=== PATIENT | male | born 1960 | race Caucasian/White ===

== ENCOUNTER 2020-12-11 10:36 | Emergency (ER) | payer OTHER, SELFPAY ==
--- NOTE | ~2020-12-11 | CT_ITS ---
EXAMINATION: CT abdomen pelvis wo con DATE: 12/11/2020 12:55 INDICATION: Left lower abdominal pain and left flank pain. TECHNIQUE: Computed tomography (CT) of the abdomen and pelvis was performed without intravenous contr ast. Automated exposure control and iterative reconstruction technique were employed. The dose-length product was 483.24 mGy-cm. COMPARISON: 08/20/2015 FINDINGS: Lung bases are clear. Heart size is normal. Atherosclerotic calcific changes along the right coronary artery. No pericardial or pleural effusion. Cholecystectomy clips at the gallbladder fossa. Liver, s pleen, pancreas, bilateral adrenal glands and kidneys are normal. No urolithiasis or hydronephrosis. Bowels including the appendix are normal. Bladder is normal. Prostatomegaly. Postoperative change of prior umbilical hernia mesh repair. No free intraperitoneal gas or fluid. No pathologically enlarged abdominal or pelvic lymphadenopathy. L4-S1 anterior spinal fusion with anterior plate and screw fixat ion. Chronic T12 and L1 compression fractures with 20% anterior vertebral body height loss. There are Schmorl's nodes at multiple additional levels in the upper lumbar and lower thoracic spine. Moderate left-sided and mild to moderate right-sided hip osteoarthritis. IMPRESSION: 1. No urolithiasis or acute intra-abdominal/pelvic process. Reviewed, dictated and finalized at location B. [employer]IST
--- NOTE | ~2020-12-11 | US_ITS ---
EXAMINATION: US scrotum doppler EXAM DATE: 12/11/2020 12:15 INDICATION: Left testicular pain. TECHNIQUE: Multiple grayscale and Doppler images of the testicles and scrotum were obtained bilateral ly. There is no prior study for comparison. FINDINGS: Right testicle measures 3.9 x 1.9 x 2.8 cm and is morphologically normal. Low resistance Doppler maria dolores w confirmed. The epididymis is unremarkable. There is no hydrocele or varicocele. Left testicle measures 3.6 x 1.7 x 2.5 cm and is morphologically normal. Low resistance Doppler flow confirmed. The epididymis is unremarkable. There is a moderate-sized varicocele and small hydrocele. IMPRESSION: Moderate-sized left varicocele, small left hydrocele. Reviewed, dictated and finalized at location A. X TRADER
--- NOTE | ~2020-12-11 | XR_ITS ---
EXAMINATION: XR abdomen/kub 1V EXAM DATE: 12/11/2020 12:52 INDICATION: Left flank pain. Rule out kidney stone. TECHNIQUE: Frontal projection(s) of the abdomen for interpretation. Correlation is made to CT scan sa me date. FINDINGS: There is expected amount of colonic stool and gas. No small bowel dilation, nonobstructiv e bowel gas pattern. There are no suspicious calcifications identified. There is no organomegaly suspected. Anterior fusion L4-5 and L5-S1. There are cholecystectomy clips. Calcifications in the pe lvis are believed to be phleboliths. There is moderate bilateral hip primary osteoarthritis. IMPRESSION: No suspicious calcifications. Reviewed, dictated and finalized at location A. [employer]
[2020-12-11 11:21] VITALS: BP 128/90; PULSE 74; RESP 16; TEMP 36.9; O2SAT 98
[2020-12-11] MEDS: ONDANSETRON INJ 4 MG/2 ML VIAL IV PUSH (11:53)
[2020-12-11] MEDS: HYDROmorphone HCL INJ (*CRX) 1 MG/ML SYR 0.5 MG IV PUSH (11:53)
[2020-12-11 11:54] LABS: Basophils Percent Auto 0.2 % (0.2-1.2); Eosinophils Absolute Auto 0.1 K/mm3 (0-0.3); Eosinophils Percent Auto 1.1 % (0-4.4); Hematocrit 47.2 % (42.0-52.0); Hemoglobin 16.1 g/dL (14.0-18.0); Immature Granulocyte Absolute 0.02 K/mm3 (0.00-0.031); Immature Granulocyte Percent A 0.2 % (0-0.5); Lymphocytes Absolute Auto 1.91 K/mm3 (0.9-3.2); Lymphocytes Percent Auto 21.5 % (18.3-44.2); Mean Corpuscular HGB Conc 34.1 g/dl (32-36); Mean Corpuscular Volume 93.8 fl (80-100); Mean Platelet Volume 8.6 fl (7.4-10.4); Monocytes Absolute Auto 0.8 K/mm3 (0.1-0.6); Monocytes Percent Auto 9.3 % (2.6-8.5); Neutrophils Percent Auto 67.7 % (45.5-73.1); Platelet Count Result 256 k/mm3 (150-375); Red Blood Count 5.03 M/mm3 (4.6-6.20); Red Cell Distribution Width 12.6 % (11.5-14.5); White Blood Count 8.9 K/mm3 (4.5-10.0)
[2020-12-11 11:56] LABS: Add Urine Microscopic? NO; Appearance Urine Clear (Clear); Bilirubin Urine Negative (Negative); Blood Urine Negative (Negative); Color Urine Colorless (Yellow); Glucose Urine UA Negative (Negative); Ketones Urine Negative (Negative); Leukocyte Esterase Ur Negative LEU/UL (Negative); Nitrate Urine Negative (Negative); Protein Urine Negative (Negative); Urobilinogen Urine Negative mg/dL (<2.0)
[2020-12-11 11:58] LABS: Specific Grav Ur 1.003 (1.001-1.035)
--- NOTE | 2020-12-11 12:02 | ED.ABDPAIN ---
HPI - Abdominal Pain General Chief Complaint: Urogenital-Male Stated Complaint: left flank/testicle/leg pain Time Seen by Provider: 12/11/20 11:21 Source: patient Mode of arrival: ambulatory Limitations: no limitations History of Present Illness HPI narrative: This is a 60 year old male who presents for evaluation of left groin pain x 4 days. He reports this pain has been constant. He reports pain is located in his left groin, left testicle, left lower abdomen. His pain has worsened and he reports he now has pain in his left lower back. He is concerned he may have a kidney infection. He denies dysuria, hematuria, fever or chills. He reports his pain is causing left leg discomfort. He denies left lower extremity numbness or tingling. He denies urinary incontinence. Related Data Allergies Allergy/AdvReac Type Severity Reaction Status Date / Time codeine Allergy Unknown Itching Verified 12/11/20 12:55 Review of Systems Review of Systems: All systems reviewed & are unremarkable except as noted in HPI and below Constitutional: Constitutional: Denies chills and Denies fever(s) Respiratory: Respiratory: Denies dyspnea Gastrointestinal: Gastrointestinal: Reports abdominal pain, Denies diarrhea and Reports nausea Genitourinary: Genitourinary: Denies hematuria, Denies oliguria, Denies penile discharge and Reports testicular pain Musculoskeletal: Musculoskeletal: Reports back pain Neurologic: Denies weakness PMFSH Past Medical History Medical History (Updated 12/11/20 @ 15:00 by Kacey Capone MD) Patient denies medical problems Surgical History Surgical History (Updated 12/11/20 @ 14:58 by Kacey Capone MD) Previous back surgery Social History Social History Smoking status: Never smoker Alcohol intake: current Exam Const: General: no acute distress and alert Orientation/consciousness: patient oriented x3 Eyes: EOM: EOMs intact bilaterally Chest: Chest palpation & inspection: normal inspection of the chest Resp: Effort & Inspection: normal respiratory effort and no retractions Auscultation: clear to auscultation bilaterally Cardio: Rate: regular rate Rhythm: regular rhythm Heart sounds: no murmurs GI: GI Palp: Yes Soft to palpation, Yes Tenderness to palpation present (GI) (LLQ), No Guarding due to palpation present (GI) and No Rigid due to palpation Auscultation: normal bowel sounds : General: Yes no CVA tenderness Penis: Yes circumcised Testes: Testes normal Back/Spine/Pelvis: Back: no CVA tenderness Skin: General skin exam: normal color Rashes: no rashes Neuro: General: patient oriented x3, moves all extremities and CN's II-XI intact bilaterally Gait exam (Neuro): Normal gait present Extrem: General: no pedal edema Psych: Mental Status: mental status grossly normal Affect: normal affect Course Reevaluation(s) Reevaluation #1: Nursing staff reports pain is much better after taking Toradol. I have discussed with patient that labs are unremarkable. HE does not have an infection or kidney stone. I Discussed he has a varicocele he can follow up with URologist. Date: 12/11/20 Time: 14:54 Vital Signs Vital signs: Vital Signs Temperature 98.4 F 12/11/20 11:21 Pulse Rate 74 12/11/20 11:21 Respiratory Rate 16 12/11/20 11:21 Blood Pressure 128/90 12/11/20 11:21 Pulse Oximetry 98 12/11/20 11:21 Temperature 98.4 F 12/11/20 11:21 Pulse Rate 74 12/11/20 11:21 Respiratory Rate 16 12/11/20 15:30 Blood Pressure 121/78 12/11/20 15:30 Pulse Oximetry 98 12/11/20 11:21 MDM - Abdominal Pain Lab Data Attestation: I reviewed the patient's lab results. Result diagrams: 12/11/20 11:47 12/11/20 11:47 Labs: Lab Results 12/11/20 12/11/20 12/11/20 Range/Units 11:47 11:47 11:47 WBC 8.9 (4.5-10.0) K/mm3 RBC 5.03 (4.6-6.20) M/mm3 Hgb 16.1 (14.0-18.0) g/dL Hct 47.2 (42.0-52.0)
[2020-12-11 12:09] LABS: Alanine Aminotransferase 29 U/L (4-50); Albumin Level 4.1 g/dL (3.5-5.1); Alkaline Phosphatase 46 U/L (38-126); Anion Gap 7 mmol/L (8-16); Aspartate Amino Transferase 32 U/L (17-59); Bilirubin,Total 0.7 mg/dL (0.2-1.3); Blood Urea Nitrogen 17 mg/dL (9-20); Calcium 8.8 mg/dL (8.4-10.2); Carbon Dioxide 29 mmol/L (22-30); Chloride 104 mmol/L (98-107); Estimated CRCL calculation 67 ml/min; Estimated Glomerular Filt Rate > 60; Glucose 91 mg/dL (75-110); Potassium 4.2 mmol/L (3.4-5.0); Sodium 140 mmol/L (137-145)
[2020-12-11] MEDS: KETOROLAC 30 MG/ML VIAL (*BKC) IV PUSH (14:24)
[2020-12-11] MEDS: oxyCODONE/ACETAMINOPHEN (*CRX) 5-325 MG TABLET 1 TABLET PO (14:24)
[2020-12-11 15:30] VITALS: BP 121/78; RESP 16
== END 2020-12-11 15:30 | disposition home or self-care (01) ==
PROVIDERS: Emergency Provider General Practice; PCP Internal Medicine Gastroenterology
DX: R10.32 Left lower quadrant pain (principal); I86.1 Scrotal varices
CPT/HCPCS: 36415; 74018; 74176; 76870; 80053; 81003; 85025; 93976; 96374; 96375; 99284; A9270; J1170; J1885; J2405

== ENCOUNTER 2021-02-05 06:50 | Emergency (ER) | payer OTHER, SELFPAY ==
--- NOTE | ~2021-02-05 | CT_ITS ---
EXAMINATION: CT soft tissue neck w con EXAM DATE: 02/05/2021 08:34 INDICATION: Neck pain, sore throat. Cough. TECHNIQUE: Spiral CT of the neck was performed following intravenous injection of 75 mL Omnipaque 350 . Axial, coronal and sagittal images were reviewed. The dose-length product (DLP) for this examinat ion was 589.24 mGy-cm. The exposure was tailored according to patient size (auto mA exposure control ), and iterative reconstruction (ASIR) was used as additional dose reduction technique. There is no prior study for comparison. FINDINGS: Small thyroid nodules. The submandibular and parotid glands are symmetric. There is no c ervical lymphadenopathy. There are no masses identified. The superior mediastinum is unremarkable . The airway is unremarkable. Epiglottis is normal in thickness. Parapharyngeal and pre-glottic fat planes are preserved. Mild carotid bulb arterial sclerosis bilaterally without stenosis. Patient has had bilateral ocular lens surgery. Mild ethmoid mucoperiosteal thickening mostly on the right. No sinus air-fluid levels. Mastoid air cells are well aerated. Lung apices are clear. Mild to modera te cervical spondylosis. There is cervical spondylosis. IMPRESSION: 1. Mild ethmoid mucoperiosteal thickening. 2. Mild carotid bulb arterial sclerosis without stenosis. Reviewed, dictated and finalized at location A.
[2021-02-05 06:55] VITALS: BP 142/89; PULSE 68; RESP 20; TEMP 36.2; O2SAT 99
--- NOTE | 2021-02-05 07:10 | PC.NURSE ---
Strep results negative.
--- NOTE | 2021-02-05 07:13 | PC.NURSE ---
Throat culture sent to lab.
[2021-02-05 07:19] VITALS: BP 142/89; PULSE 68; RESP 20; TEMP 36.2; O2SAT 99
--- NOTE | 2021-02-05 07:23 | PC.NURSE ---
Pt presents to ED with complaints of sore throat for the past 2-3 days. Pt states he has been treating pain with 243mg aspirin approx 3x daily. Pt states he has also been gargling with peroxide and tea tree oil with no relief. Pain rated 10/10 at this time. Throat noted with mild irritation and redness. No white patches or pockets noted. Pt alert and oriented x4 and in no obvious distress. Pt updated on poc. All questions and concerns addressed. Pt resting on cart in its lowest position with call button and personal items within reach. Pt advised to press call button for assistance.
[2021-02-05] MEDS: SODIUM CHLORIDE 0.9% IV 1,000 ML 999 ML IV CONT (07:42)
[2021-02-05] MEDS: ONDANSETRON INJ 4 MG/2 ML VIAL IV PUSH (07:42)
[2021-02-05 08:01] LABS: Basophils Percent Auto 0.6 % (0.2-1.2); Eosinophils Absolute Auto 0.2 K/mm3 (0-0.3); Hematocrit 48.9 % (42.0-52.0); Hemoglobin 16.6 g/dL (14.0-18.0); Immature Granulocyte Absolute 0.03 K/mm3 (0.00-0.031); Immature Granulocyte Percent A 0.4 % (0-0.5); Lymphocytes Percent Auto 26.1 % (18.3-44.2); Mean Corpuscular HGB Conc 33.9 g/dl (32-36); Mean Corpuscular Hemoglobin 31.4 pg (26-34); Mean Corpuscular Volume 92.4 fl (80-100); Monocytes Absolute Auto 0.9 K/mm3 (0.1-0.6); Monocytes Percent Auto 13.6 % (2.6-8.5); Neutrophils Absolute Auto 3.9 K/mm3 (1.3-6.7); Neutrophils Percent Auto 56.3 % (45.5-73.1); Platelet Count Result 223 k/mm3 (150-375); Red Blood Count 5.29 M/mm3 (4.6-6.20); White Blood Count 6.9 K/mm3 (4.5-10.0)
[2021-02-05 08:13] LABS: Anion Gap 5 mmol/L (8-16); Blood Urea Nitrogen 16 mg/dL (9-20); Calcium 8.5 mg/dL (8.4-10.2); Carbon Dioxide 28 mmol/L (22-30); Chloride 107 mmol/L (98-107); Estimated CRCL calculation 76 ml/min; Estimated Glomerular Filt Rate > 60; Glucose 102 mg/dL (75-110); Potassium 3.9 mmol/L (3.4-5.0); Sodium 140 mmol/L (137-145)
[2021-02-05 08:18] VITALS: BP 139/89; PULSE 75; RESP 18; O2SAT 97
[2021-02-05 10:25] VITALS: BP 144/91; PULSE 73; RESP 18; O2SAT 97
--- NOTE | 2021-02-05 11:31 | ED.URI ---
HPI - URI/Sore Throat General Chief Complaint: Upper Respiratory Infection Stated Complaint: SORE THROAT X2D Time Seen by Provider: 02/05/21 07:07 Source: patient Mode of arrival: ambulatory Limitations: no limitations History of Present Illness HPI Narrative: 60-year-old with no major medical problems here with complaints of sore throat for past 3 days. He states that he feels there is something in the back of his throat which is very painful and is unable to drink water or eat food. He denies any fever or chills. No possible Covid exposure. Related Data Allergies Allergy/AdvReac Type Severity Reaction Status Date / Time codeine Allergy Unknown Itching Verified 12/11/20 12:55 Review of Systems Review of Systems: All systems reviewed & are unremarkable except as noted in HPI and below Constitutional: Constitutional: Reports no additional constitutional complaints Eyes: Eyes: Reports no additional eye complaints ENT: Reports as per HPI Cardiovascular: Cardiovascular: Reports no additional cardiovascular complaints Respiratory: Respiratory: Reports no additional respiratory complaints Gastrointestinal: Gastrointestinal: Reports no additional gastrointestinal complaints Musculoskeletal: Musculoskeletal: Reports no additional musculoskeletal complaints Integumentary/Breasts: Skin/Breast: Reports system reviewed and no additional complaints, except as docu Psychiatric: Psychiatric: Reports no additional psychiatric complaints PMFSH Past Medical History Medical History Patient denies medical problems Surgical History Surgical History Previous back surgery Social History Social History Smoking status: Never smoker Alcohol intake: current Exam Narrative: Exam Narrative: GENERAL: Well-appearing, well-nourished, and in no acute distress. HEAD: Normocephalic, atraumatic. EYES: PERRLA and EOMI. ENT: Nares clear, no rhinorrhea or epistaxis. Mucous membranes moist. NECK: Supple. CHEST: Clear to auscultation. No respiratory distress. HEART: Regular rate and rhythm. No murmur heard. Normal peripheral pulses. ABDOMEN: Soft, nontender, nondistended, normal active bowel sounds. EXTREMITIES: Normal range of motion. No edema. SKIN: Warm, dry, no rash. NEURO: No focal deficits. Alert and oriented x3. PSYCH: Normal mood and affect. Course Course Emergency Course: Patient states that he is feeling much better after IV Decadron. I did discuss his lab, CT findings . Advised him to drink plenty of fluids take Tylenol ibuprofen for pain and also take prednisone 20 mg daily for next 5 days. Advised him to follow-up with his primary doctor if symptoms do not improve. Vital Signs Vital signs: Vital Signs Temperature 36.2 C L 02/05/21 06:55 Pulse Rate 68 02/05/21 06:55 Respiratory Rate 20 02/05/21 06:55 Blood Pressure 142/89 H 02/05/21 06:55 Pulse Oximetry 99 02/05/21 06:55 Temperature 36.2 C L 02/05/21 07:19 Pulse Rate 73 02/05/21 10:25 Respiratory Rate 18 02/05/21 10:25 Blood Pressure 144/91 H 02/05/21 10:25 Pulse Oximetry 97 02/05/21 10:25 MDM - URI/Sore Throat Lab Data Result diagrams: 02/05/21 07:43 02/05/21 07:43 Labs: Lab Results 02/05/21 02/05/21 Range/Units 07:43 07:43 WBC 6.9 (4.5-10.0) K/mm3 RBC 5.29 (4.6-6.20) M/mm3 Hgb 16.6 (14.0-18.0) g/dL Hct 48.9 (42.0-52.0) % MCV 92.4 (80-100) fl MCH 31.4 (26-34) pg MCHC 33.9 (32-36) g/dl RDW 12.0 (11.5-14.5) % Plt Count 223 (150-375) k/mm3 MPV 9.0 (7.4-10.4) fl Immature Gran % (Auto) 0.4 (0-0.5) % Neut % (Auto) 56.3 (45.5-73.1) % Lymph % (Auto) 26.1 (18.3-44.2) % Bertie % (Auto) 13.6 H (2.6-8.5) % Eos % (Auto) 3.0 (0-4.4) % Baso % (Auto) 0.6 (0.2-1.2) % Lymph # (Auto
[2021-02-05 11:51] VITALS: BP 137/90; PULSE 80; RESP 18; O2SAT 97
== END 2021-02-05 11:51 | disposition home or self-care (01) ==
PROVIDERS: Emergency Provider Family Medicine; PCP Internal Medicine Gastroenterology
DX: J02.9 Acute pharyngitis, unspecified (principal); I65.23 Occlusion and stenosis of bilateral carotid arteries
CPT/HCPCS: 36415; 70491; 80048; 85025; 87070; 96361; 96374; 96375; 99284; J1100; J2405; J7030; Q9967

== ENCOUNTER 2022-01-28 09:15 | Outpatient (CLI) | payer OTHER, SELFPAY ==
--- NOTE | ~2022-01-28 | XR_ITS ---
EXAM: XR lumbar spine 6V w bending HISTORY: CHRONIC PAIN NO INJ COMPARISON: CT abdomen and pelvis 12/11/2020. FINDINGS: Note, sidedness in the frontal view is marked incorrectly. 5 nonrib-bearing lumbar-type mahi tebral bodies, with intact pedicles. Anterior screw and plate fusion with interbody bone plugs at L4- S1, plugs in good position, no hardware fracture or lucency. Thoracolumbar kyphosis centered at T12-L 1. Moderate wedge compression deformity at L1, mild anterior wedge deformity at T12, both stable. Rem aining vertebral body heights maintained. 2 mm retrolisthesis of L1 on L2, L2 on L3, and L3 on L4, al l stable in flexion and extension. Multilevel disc space narrowing and marginal osteophytosis. Multil evel facet hypertrophy. IMPRESSION: Uncomplicated anterior L4-S1 fusion. Minimal grade 1, nondynamic retrolistheses of L1 on L2-L3 on L4. Multilevel moderate degenerative disc disease. Multilevel facet arthropathy. Reviewed, dictated and finalized at location K. IMPRESSION: Uncomplicated anterior L4-S1 fusion. Minimal grade 1, nondynamic retrolistheses of L1 on L2-L3 on L4. Multilevel moderate degenerative disc disease. Multileve l facet arthropathy.
--- NOTE | ~2022-01-28 | XR_ITS ---
EXAMINATION: XR shoulder LT min 2V DATE: 01/28/2022 10:11 INDICATION: Left shoulder pain. TECHNIQUE: 4 views of left shoulder were obtained. COMPARISON: None. FINDINGS: Bone alignment is normal. No fracture. There is mild osteoarthritis of glenohumeral joint a nd acromioclavicular joint. IMPRESSION: 1. Mild polyarticular osteoarthritis. Reviewed, dictated and finalized at location B.
--- NOTE | ~2022-01-28 | XR_ITS ---
EXAMINATION: XR knee RT min 4V DATE: 01/28/2022 10:11 INDICATION: Chronic right knee pain. TECHNIQUE: 4 views of right knee including standing views were obtained. COMPARISON: None. FINDINGS: Bone alignment is normal. No fracture. There is mild tricompartmental osteoarthritis charac terized by tiny osteophytes. No joint space narrowing. No knee joint effusion. IMPRESSION: 1. Mild right knee osteoarthritis. Reviewed, dictated and finalized at location B.
--- NOTE | ~2022-01-28 | XR_ITS ---
EXAMINATION: XR knee LT min 4V DATE: 01/28/2022 10:11 INDICATION: Chronic left knee pain. TECHNIQUE: 4 views of left knee including standing views were obtained. COMPARISON: None. FINDINGS: Bone alignment is normal. No fracture. There is mild tricompartmental osteoarthritis charac terized by tiny osteophytes. No joint space narrowing. No knee joint effusion. IMPRESSION: 1. Mild left knee osteoarthritis. Reviewed, dictated and finalized at location B.
== END 2022-01-28 09:16 | disposition home or self-care (01) ==
PROVIDERS: PCP Internal Medicine; Visit Provider Internal Medicine
DX: M47.817 Spondylosis without myelopathy or radiculopathy, lumbosacral region (principal); M40.205 Unspecified kyphosis, thoracolumbar region; Z98.1 Arthrodesis status; M17.0 Bilateral primary osteoarthritis of knee
CPT/HCPCS: 72114; 73030; 73564

== ENCOUNTER 2022-02-21 01:34 | Day surgery (SDC) | payer OTHER, SELFPAY ==
[2022-02-08 13:43] VITALS: BMI 24.5
[2022-02-21 06:26] VITALS: BP 132/91; PULSE 71; RESP 20; TEMP 36.2; O2SAT 100; BMI 23.3
[2022-02-21] MEDS: LACTATED RINGERS 1,000 ML 150 ML IV CONT (06:36)
--- NOTE | 2022-02-21 07:26 | WPDANESEPPF ---
Anes - Initial Pre Proc Eval Procedure: Operation Date: 02/21/22 07:30 Proposed Procedures p Colonoscopy - Case Haley MD Date/Time: 02/21/22 07:26 Surgeon: Case Haley MD Pre Op Diagnosis: Rectal bleeding Patient Data Age: 62 Gender: M Height: 1.83 m Weight: 78.1 kg Last Vital Signs Temp 97.1 F L 02/21/22 06:26 Pulse 71 02/21/22 06:26 Resp 20 02/21/22 06:26 BP 132/91 H 02/21/22 06:26 Pulse Ox 100 02/21/22 06:26 Allergies Allergy/AdvReac Type Severity Reaction Status Date / Time codeine Allergy Unknown Itching Verified 02/21/22 06:25 Home Medications Medication Instructions Recorded Confirmed Type Total Beets 650 mg BYMOUTH DAILY 02/05/22 02/08/22 History ascorbate calcium (vitamin C) 500 500 mg PO DAILY 02/05/22 02/08/22 History mg tablet biotin 10,000 mcg capsule 10,000 mcg PO DAILY 02/05/22 02/08/22 History cholecalciferol (vitamin D3) 25 25 mcg PO DAILY 02/05/22 02/08/22 History mcg (1,000 unit) capsule coenzyme Q10 200 mg/gram oral 200 mg PO DAILY 02/05/22 02/08/22 History powder collagen protein 11 g BYMOUTH DAILY 02/05/22 02/08/22 History glucosamine 750 [id number] 1 tablet PO BID 02/05/22 02/08/22 History no1 644 mg-C 30 mg-philippe 1 mg tablet iodine (kelp) 0.15 mg tablet 0.15 mcg PO DAILY 02/05/22 02/08/22 History mecobalamin (vitamin B12) 1,000 1,000 mcg SUBLINGUAL DAILY 02/05/22 02/08/22 History mcg disintegrating tablet,sublingual omeprazole 20 mg capsule,delayed 20 mg PO DAILY PRN 02/05/22 02/08/22 History release zinc (Immune + daily wellness 11 mg BYMOUTH DAILY 02/05/22 02/08/22 History Patient hx anesthesia problems: none Family hx anesthesia problems: none Results Review: All pre-operative results and documents have been reviewed as part of the pre-operative evaluation. [facility] Past Medical History Medical History Abdominal pain BMI 24.0-24.9, adult Colon cancer screening Dyslipidemia Hx of atrial fibrillation without current medication Hydrocele, left Low back pain Nocturia Non-healing skin lesion Patient denies medical problems Prostate cancer screening Testicular pain Surgical History Surgical History Hx of cholecystectomy Previous back surgery S/P hernia repair Social History Social History Smoking status: Never smoker Alcohol intake: current Drinks per week: 1 Living arrangements: alone Spiritual care concerns: No Anes - Eval Final PreProcedure Day of Procedure 02/21/22 07:26 Patient weight: normal Heart: regular rate and rhythm (states goes in and out of AF) Lungs: clear to auscultation Airway: Mallampati scale Neurological: alert and oriented Last oral intake: >/= 8 hours ASA classification: III Emergent: no Anesthetic plan: proceed Anesthesia type and monitoring: general and standard monitoring Results Review: All pre-operative results and documents have been reviewed as part of the pre-operative evaluation. Informed Consent: The patient's anesthetic plan and its attendant risks and benefits were discussed with the patient/family/POA. Questions were solicited and answers provided to the satisfaction of the patient/family/POA.
--- NOTE | 2022-02-21 07:32 | WPDGICN ---
Assessment and Plan Assessment and plan (1) Colon cancer screening: Code(s): Z12.11 - Encounter for screening for malignant neoplasm of colon Status: Acute Assessment and Plan: Patient presents for neoplasia screening colonoscopy. Further recommendations will be given after endoscopy. (2) Rectal bleeding: Code(s): K62.5 - Hemorrhage of anus and rectum Status: Acute Assessment and Plan: Patient has noticed occasional bright red blood per rectum suspicious for hemorrhoids. This will be assessed at time of colonoscopy. High-fiber diet is advised. GI Consult Note Consult date/time: 02/21/22 07:32 HPI: Tho Ervin is a 62 year old male Presents for colonoscopy. Patient reports occasional bright red blood per rectum occurs intermittently. He attributes this to worsening when working. And heavy lifting. He denies abdominal pain. He has had no alteration of bowel habits. Family history is noncontributory. Review of Systems Review of Systems: All systems reviewed & are unremarkable except as noted in HPI and below PMFSH Past Medical History Medical History Abdominal pain BMI 24.0-24.9, adult Colon cancer screening Dyslipidemia Hx of atrial fibrillation without current medication Hydrocele, left Low back pain Nocturia Non-healing skin lesion Patient denies medical problems Prostate cancer screening Testicular pain Surgical History Surgical History Hx of cholecystectomy Previous back surgery S/P hernia repair Social History Social History Smoking status: Never smoker Alcohol intake: current Drinks per week: 1 Living arrangements: alone Spiritual care concerns: No Meds Home Medications and Allergies Home Medications Medication Instructions Recorded Confirmed Type Total Beets 650 mg BYMOUTH DAILY 02/05/22 02/08/22 History ascorbate calcium (vitamin C) 500 500 mg PO DAILY 02/05/22 02/08/22 History mg tablet biotin 10,000 mcg capsule 10,000 mcg PO DAILY 02/05/22 02/08/22 History cholecalciferol (vitamin D3) 25 25 mcg PO DAILY 02/05/22 02/08/22 History mcg (1,000 unit) capsule coenzyme Q10 200 mg/gram oral 200 mg PO DAILY 02/05/22 02/08/22 History powder collagen protein 11 g BYMOUTH DAILY 02/05/22 02/08/22 History glucosamine 750 [id number] 1 tablet PO BID 02/05/22 02/08/22 History no1 644 mg-C 30 mg-philippe 1 mg tablet iodine (kelp) 0.15 mg tablet 0.15 mcg PO DAILY 02/05/22 02/08/22 History mecobalamin (vitamin B12) 1,000 1,000 mcg SUBLINGUAL DAILY 02/05/22 02/08/22 History mcg disintegrating tablet,sublingual omeprazole 20 mg capsule,delayed 20 mg PO DAILY PRN 02/05/22 02/08/22 History release zinc (Immune + daily wellness 11 mg BYMOUTH DAILY 02/05/22 02/08/22 History Allergies Allergy/AdvReac Type Severity Reaction Status Date / Time codeine Allergy Unknown Itching Verified 02/21/22 06:25 Vital Signs Vital Signs - 24 hr 02/21/22 06:26 Temperature 97.1 F L Pulse Rate 71 Respiratory Rate 20 Blood Pressure 132/91 H Pulse Oximetry 100 Exam Narrative: Physical exam reveals patient to be alert. Vital signs stable. HEENT exam is unremarkable. Patient is anicteric. Lungs are clear to auscultation and percussion. Heart is without murmur or extra sounds. Abdominal exam bowel sounds are present soft nontender with no organomegaly. Digital external rectal exam is normal.
[2022-02-21 07:59] VITALS: BP 109/76; PULSE 77; RESP 21; O2SAT 98
[2022-02-21 08:09] VITALS: BP 111/79; PULSE 73; RESP 19; O2SAT 100
[2022-02-21 08:19] VITALS: BP 129/90; PULSE 67; RESP 17; O2SAT 97
--- NOTE | 2022-02-21 09:35 | SUR.PHASEII ---
0805- Pt had emesis in procedure room and post-op room. Suction used. 0810- Pt doing well with no complaints.
== END 2022-02-21 08:26 | disposition home or self-care (01) ==
PROVIDERS: PCP Internal Medicine; Visit Provider Internal Medicine Gastroenterology
PROC: 0DJD8ZZ Inspection of Lower Intestinal Tract, Via Natural or Artificial Opening Endoscopic (ICD-10-PCS; CPT 45378; principal; 2022-02-21 07:30)
DX: Z12.11 Encounter for screening for malignant neoplasm of colon (principal); K62.5 Hemorrhage of anus and rectum; K64.8 Other hemorrhoids; K57.30 Diverticulosis of large intestine without perforation or abscess without bleeding; D12.5 Benign neoplasm of sigmoid colon
CPT/HCPCS: 45385; 88305; J2704; J7120

== ENCOUNTER 2022-03-12 09:13 | Outpatient (CLI) | payer OTHER, SELFPAY ==
--- NOTE | ~2022-03-12 | US_ITS ---
US scrotum doppler INDICATION: Left testicular pain TECHNIQUE: Testicular sonogram utilizing grayscale and color Doppler FINDINGS: The testes are normal in size and appearance. No focal lesions are seen. The right testes measures 4.3 x 2.9 x 1.9 cm centimeters, and the left testis measures 3.2 x 2.3 x 2 cm cm. There is n ormal vascular flow to both testes. There is a left-sided scrotolith, likely of no clinical significa nce. There is a left epididymal cyst measuring 5 mm. There is a left varicocele. Small left hydrocele. IMPRESSION: 1. Left varicocele. 2: Small left hydrocele. 3: Left epididymal cyst measuring 5 mm. Reviewed, dictated and finalized at location A.
== END 2022-03-12 09:14 | disposition home or self-care (01) ==
LOC: ANHIMG 09:16
PROVIDERS: PCP Internal Medicine; Visit Provider Internal Medicine
DX: I86.1 Scrotal varices (principal); N43.3 Hydrocele, unspecified; N50.3 Cyst of epididymis
CPT/HCPCS: 76870; 93976

== ENCOUNTER 2022-06-18 08:32 | Outpatient (RCR) | payer OTHER, SELFPAY ==
--- NOTE | 2022-06-18 09:57 | PTOPEVAL1 ---
Evaluation Information Assessment Status Evaluation Diagnosis BPPV Onset Mid and late May Subjective Information Reports has severe vomitting, does not need to be in therapy currently as he is currently without symptoms. Voices concern about having symptoms while at work. States does not want to be here Reported Pain Level Pain Score Mild Pain: Denilson Tran Additional Pain Score Comments Reports not much pain normal wear and tear Assessment PT Clinical Summary Pt reports prior episodes of vertigo. Upon entering gym pt voices his education on the subject related to internet searches as well as voicing multiple times wishing to not be in therapy today or after today. Pt balance testing shows balance deficit amy w/ eyes closed activity and decreasd EARL however shows no nystagmus with ana-hallike or roll testing today, nor with supine <>sit position. Pt very interested in prognosis of diagnosis related to effect on work, possible return of issue and ability to over come issue. Educated on prgonosis, possibility of return of symptoms, and addressing these issues as he had this time. Also educated on factors that may increase likelihood of return of symtptoms such as head trauma, prolonged positions in supine, atmosperic pressure changes, etc. Encouraged pt that we would keep his chart open for a month as he does show some mild symptoms of vertigo issues and may require therapy. Should he cont to improve independently, we will close his chart. Plan of Care Interventions Other Other Interventions Education and HEP PT Services Indicated Yes Treatment Frequency and as needed Duration These treatments will address the objective and functional deficits as defined above. The patient will be advanced safely and appropriately in order for the patient to progress towards his/her prior level of function. Additional exercises will be introduced and as well as a comprehensive home exercise program upon discharge, if needed, ?to ensure carryover of functional gains achieved in the clinic. This treatment plan has been reviewed and agreement upon by the patient.
== END 2022-09-02 08:57 | disposition home or self-care (01) ==
LOC: ANHPT 08:32
PROVIDERS: PCP Internal Medicine; Referring Provider Internal Medicine; Visit Provider Internal Medicine
DX: H81.10 Benign paroxysmal vertigo, unspecified ear (principal)
CPT/HCPCS: 97110; 97161

== ENCOUNTER 2022-10-02 20:16 | Day surgery (SDC) | payer OTHER, SELFPAY ==
[2022-10-02 20:24] VITALS: BP 129/105; PULSE 76; RESP 18; TEMP 36.4; O2SAT 98
--- NOTE | 2022-10-02 23:40 | PC.NURSE ---
pt not avail in waiting room at 2230 pt not avail in waiting room at 2340 [facility]
[2022-10-03] MEDS: GLUCAGON FOR INJ 1 MG VIAL IM ×2 (00:08→01:03)
--- NOTE | 2022-10-03 00:45 | ED.GENADULT ---
HPI - General Adult General Chief complaint: Unspecified Stated complaint: possible food obstruction Time Seen by Provider: 10/03/22 00:23 Source: patient Mode of arrival: ambulatory Limitations: no limitations History of Present Illness HPI narrative: 62 years old white male with shaking at 1 PM yesterday, unable to keep anything down. History of esophageal obstruction 8 years ago required EGD and stretching. Currently on Nexium. Otherwise healthy. Related Data Home Medications Medication Instructions Recorded Confirmed ascorbate calcium (vitamin C) 500 500 mg PO DAILY 02/05/22 09/25/22 mg tablet biotin 10,000 mcg capsule 10,000 mcg PO DAILY 02/05/22 09/25/22 cholecalciferol (vitamin D3) 25 25 mcg PO DAILY 02/05/22 09/25/22 mcg (1,000 unit) capsule coenzyme Q10 200 mg/gram oral 200 mg PO DAILY 02/05/22 09/25/22 powder (H2Q CoQ10) collagen protein 11 g BYMOUTH DAILY 02/05/22 09/25/22 iodine (kelp) 0.15 mg tablet (Kelp) 0.15 mcg PO DAILY 02/05/22 09/25/22 mecobalamin (vitamin B12) 1,000 1,000 mcg sublingual DAILY 02/05/22 09/25/22 mcg disintegrating tablet,sublingual omeprazole 20 mg capsule,delayed 20 mg PO DAILY PRN Indigestion 02/05/22 09/25/22 release zinc (Immune + daily wellness 11 mg BYMOUTH DAILY 02/05/22 09/25/22 Allergies Allergy/AdvReac Type Severity Reaction Status Date / Time codeine Allergy Unknown Itching Verified 10/03/22 07:44 Review of Systems Review of Systems: All systems reviewed & are unremarkable except as noted in HPI and below PMFSH Past Medical History Medical History Abdominal pain Abdominal pain BMI 24.0-24.9, adult Colon cancer screening Dyslipidemia Dysphagia Encounter for preventive health examination Hx of atrial fibrillation without current medication Hydrocele, left Low back pain Nocturia Non-healing skin lesion Patient denies medical problems Pilonidal cyst Pilonidal cyst without infection Prostate cancer screening Testicular pain L Testicular Pain Tinnitus, bilateral Vertigo Surgical History Surgical History Hx of cholecystectomy Previous back surgery S/P hernia repair Family History Family History Mother Stomach cancer Social History Social History Smoking status: Never smoker Alcohol intake: current Drinks per week: 1 Lack of Transportation: No Lack of Food: Never True Current Housing: I Have Housing Concerned About Future Housing: No Difficulty Paying Gas/Electric Bills: No Difficulty Paying for Meds: No Currently Unemployed: No Education: Trade/Vocational Certificate Difficulty w/ Childcare or Family Care: No 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 Musculoskeletal: Normal range of motion, nontender back Neurologic: Alert and oriented ?3, BLOOD BANK CUSTODIAN is normal as tested, no gross motor deficit Course Consultations Consultation #1: Dr. Celestin
[2022-10-03] MEDS: SODIUM CHLORIDE 0.9% IV 1,000 ML 999 ML IV CONT (01:02)
--- NOTE | 2022-10-03 01:02 | PC.NURSE ---
pt attempted to drink water but unable to swallow water. Pt states it come right back up.
[2022-10-03] MEDS: PANTOPRAZOLE SODIUM IV 40 MG VIAL IV PUSH (01:03)
[2022-10-03 07:23] VITALS: BP 118/89; PULSE 81; RESP 16
--- NOTE | 2022-10-03 07:27 | PM.HPGS ---
History of Present Illness History of Present Illness Consent: Risks, benefits, and alternatives have been discussed and questions answered. Patient agrees to proceed with procedure. Chief complaint: EGD - Food Bolus Narrative: Tho Ervin is a 62 year old male Who presented to the emergency room last evening with Difficultyswallowing. He recognized that he had of an impaction with food. he had been eating chicken thighs. This has happened have in the past. Five years ago he had a food impaction that was removed and then 2 months later came in for elective dilatation. Review of Systems Review of Systems: All systems reviewed & are unremarkable except as noted in HPI and below PMFSH Past Medical History Medical History Abdominal pain Abdominal pain BMI 24.0-24.9, adult Colon cancer screening Dyslipidemia Dysphagia Encounter for preventive health examination Hx of atrial fibrillation without current medication Hydrocele, left Low back pain Nocturia Non-healing skin lesion Patient denies medical problems Pilonidal cyst Pilonidal cyst without infection Prostate cancer screening Testicular pain L Testicular Pain Tinnitus, bilateral Vertigo Surgical History Surgical History Hx of cholecystectomy Previous back surgery S/P hernia repair Family History Family History Mother Stomach cancer Social History Social History Smoking status: Never smoker Alcohol intake: current Drinks per week: 1 Lack of Transportation: No Lack of Food: Never True Current Housing: I Have Housing Concerned About Future Housing: No Difficulty Paying Gas/Electric Bills: No Difficulty Paying for Meds: No Currently Unemployed: No Education: Trade/Vocational Certificate Difficulty w/ Childcare or Family Care: No 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 Gender identity (if verbalized by the patient): Male Spiritual care concerns: No Meds Home Medications and Allergies Home Medications Medication Instructions Recorded Confirmed Type ascorbate calcium (vitamin C) 500 500 mg PO DAILY 02/05/22 09/25/22 History mg tablet biotin 10,000 mcg capsule 10,000 mcg PO DAILY 02/05/22 09/25/22 History cholecalciferol (vitamin D3) 25 25 mcg PO DAILY 02/05/22 09/25/22 History mcg (1,000 unit) capsule coenzyme Q10 200 mg/gram oral 200 mg PO DAILY 02/05/22 09/25/22 History powder (H2Q CoQ10) collagen protein 11 g BYMOUTH DAILY 02/05/22 09/25/22 History iodine (kelp) 0.15 mg tablet (Kelp) 0.15 mcg PO DAILY 02/05/22 09/25/22 History mecobalamin (vitamin B12) 1,000 1,000 mcg sublingual DAILY 02/05/22 09/25/22 History mcg disintegrating tablet,sublingual omeprazole 20 mg capsule,delayed 20 mg PO DAILY PRN Indigestion 02/05/22 09/25/22 History release zinc (Immune + daily wellness 11 mg BYMOUTH DAILY 02/05/22 09/25/22 History dextroamphetamine-amphetamine 20 20 mg PO DAILY #30 tabs 09/25/22 09/25/22 Rx mg tablet (Adderall) Allergies Allergy/AdvReac Type Severity Reaction Status Date / Time codeine Allergy Unknown Itching Verified 10/03/22 07:44 Vital Signs Vital Signs - 24 hr 10/02/22 20:24 10/03/22 07:23 Temperature 36.4 C L Pulse Rate 76 81 Respiratory Rate 18 16 Blood Pressure 129/105 H 118/89 Pulse Oximetry 98 Oxygen Delivery Room Air Exam Const: General: alert Orientation/consciousness: patient oriented x3 Resp: Auscultation: clear to auscultation bilaterally Cardio: Rhythm: regular rhythm GI: GI Palp: Yes Soft to palpation and No Tenderness to palpation present (GI) Neuro: General: patient oriented x3 Assessment and Plan Assessment and plan (1) Dysphagia: Code(s): R13.10 - Dysphagia, unspecified Status: Acute
[2022-10-03 07:30] VITALS: BP 118/89; PULSE 81; RESP 16
[2022-10-03 07:48] VITALS: BP 130/94; PULSE 69; RESP 18; TEMP 36.1; O2SAT 99
--- NOTE | 2022-10-03 07:50 | WPDANESEPPF ---
Anes - Initial Pre Proc Eval Procedure: Operation Date: 10/03/22 12:15 Proposed Procedures p Esophagogastroduodenoscopy for Food Bolus - Vitaliy Ramirez MD Date/Time: 10/03/22 07:50 Surgeon: Vitaliy Ramirez MD Pre Op Diagnosis: EGD - Food Bolus Patient Data Age: 62 Gender: M Height: 1.83 m Weight: 79.3 kg Last Vital Signs Temp 36.1 C L 10/03/22 07:48 Pulse 69 10/03/22 07:48 Resp 18 10/03/22 07:48 BP 130/94 H 10/03/22 07:48 Pulse Ox 99 10/03/22 07:48 O2 Del Method Room Air 10/03/22 07:48 Allergies Allergy/AdvReac Type Severity Reaction Status Date / Time codeine Allergy Unknown Itching Verified 10/03/22 07:44 Home Medications Medication Instructions Recorded Confirmed Type ascorbate calcium (vitamin C) 500 500 mg PO DAILY 02/05/22 09/25/22 History mg tablet biotin 10,000 mcg capsule 10,000 mcg PO DAILY 02/05/22 09/25/22 History cholecalciferol (vitamin D3) 25 25 mcg PO DAILY 02/05/22 09/25/22 History mcg (1,000 unit) capsule coenzyme Q10 200 mg/gram oral 200 mg PO DAILY 02/05/22 09/25/22 History powder (H2Q CoQ10) collagen protein 11 g BYMOUTH DAILY 02/05/22 09/25/22 History iodine (kelp) 0.15 mg tablet (Kelp) 0.15 mcg PO DAILY 02/05/22 09/25/22 History mecobalamin (vitamin B12) 1,000 1,000 mcg sublingual DAILY 02/05/22 09/25/22 History mcg disintegrating tablet,sublingual omeprazole 20 mg capsule,delayed 20 mg PO DAILY PRN Indigestion 02/05/22 09/25/22 History release zinc (Immune + daily wellness 11 mg BYMOUTH DAILY 02/05/22 09/25/22 History dextroamphetamine-amphetamine 20 20 mg PO DAILY #30 tabs 09/25/22 09/25/22 Rx mg tablet (Adderall) Patient hx anesthesia problems: none Family hx anesthesia problems: none Results Review: All pre-operative results and documents have been reviewed as part of the pre-operative evaluation. [facility], [facility] Past Medical History Medical History Abdominal pain Abdominal pain BMI 24.0-24.9, adult Colon cancer screening Dyslipidemia Dysphagia Encounter for preventive health examination Hx of atrial fibrillation without current medication Hydrocele, left Low back pain Nocturia Non-healing skin lesion Patient denies medical problems Pilonidal cyst Pilonidal cyst without infection Prostate cancer screening Testicular pain L Testicular Pain Tinnitus, bilateral Vertigo Surgical History Surgical History Hx of cholecystectomy Previous back surgery S/P hernia repair Family History Family History Mother Stomach cancer Social History Social History Smoking status: Never smoker Alcohol intake: current Drinks per week: 1 Lack of Transportation: No Lack of Food: Never True Current Housing: I Have Housing Concerned About Future Housing: No Difficulty Paying Gas/Electric Bills: No Difficulty Paying for Meds: No Currently Unemployed: No Education: Trade/Vocational Certificate Difficulty w/ Childcare or Family Care: No 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 Informed Consent: The patient's anesthetic plan and its attendant risks and benefits were discussed with the patient/fam
[2022-10-03] MEDS: LACTATED RINGERS 1,000 ML 150 ML IV CONT (07:51)
[2022-10-03 08:41] VITALS: BP 95/62; PULSE 89; RESP 28; O2SAT 99
[2022-10-03 08:51] VITALS: BP 96/59; PULSE 83; RESP 24; O2SAT 99
[2022-10-03 09:01] VITALS: BP 99/65; PULSE 75; RESP 20; O2SAT 100
== END 2022-10-03 09:53 | disposition home or self-care (01) ==
LOC: ANHED 10-03 00:50 → ANHENDO 10-03 07:32
PROVIDERS: Emergency Provider Emergency Medicine; PCP Internal Medicine; Visit Provider Internal Medicine Gastroenterology
PROC: 0DJ08ZZ Inspection of Upper Intestinal Tract, Via Natural or Artificial Opening Endoscopic (ICD-10-PCS; CPT 43235; principal; 2022-10-03 12:45)
DX: T18.128A Food in esophagus causing other injury, initial encounter (principal); K22.2 Esophageal obstruction; K21.00 Gastro-esophageal reflux disease with esophagitis, without bleeding
CPT/HCPCS: 43247; 96361; 96372; 96374; 99285; C9113; J1610; J2001; J2704; J7030; J7120

== ENCOUNTER 2022-10-18 12:27 | Outpatient (CLI) | payer OTHER, SELFPAY ==
--- NOTE | ~2022-10-18 | CT_ITS ---
EXAMINATION: CT abdomen pelvis w con DATE: 10/18/2022 13:09 INDICATION: Left lower quadrant abdominal pain TECHNIQUE: Computed tomography (CT) of the abdomen and pelvis was performed with 100 CC Omnipaque 350 intravenous contrast. Automated exposure control and iterative reconstruction technique were employe d. Exam dose: 396.02 mGy-cm total exam DLP. COMPARISON: 12/11/2020 CT abdomen pelvis FINDINGS: There is minimal dependent atelectasis at the lower lobes. The lung bases are clear of infi ltrate or consolidation. Normal heart size. No pericardial or pleural effusion. Status post cholecystectomy. The liver, spleen, pancreas, bile ducts and pancreatic duct appear cal l. Normal morphology of the adrenal glands. No renal mass lesion or urinary tract calculus or hydroureteronephrosis. There is very prominent prostate enlargement, as well as extensive prostate calcification. Moderate d iffuse thickening of the urinary bladder consistent with bladder outlet obstruction. There is atherosclerotic calcification but normal caliber of the abdominal aorta and iliac arteries. No intraperitoneal or retroperitoneal or pelvic mass lesion or adenopathy or ascites is detected. Normal appendix. No bowel obstruction, bowel wall thickening, pneumatosis or intraperitoneal free air . Chronic moderate anterior wedge compression fracture deformity of L1. Minimal anterior wedging versus mild chronic anterior wedge compression fracture deformities of T11 a nd T12, prominent Schmorl's node of superior T11. Status post anterior and interbody surgical fusion at L4-S1. Bilateral hip osteoarthritis. No suspicious osteolytic or osteoblastic lesions are noted. IMPRESSION: Status post cholecystectomy Normal appendix Prominent prostate enlargement and calcification Chronic compression fracture of L1; probable developmental mild anterior wedging of T11 and T12 with prominent at T11 Schmorl's node; cannot exclude mild chronic compression fractures of T11 and T12. Status post anterior and interbody spinal surgical fusion at L4-S1 Bilateral hip osteoarthritis Reviewed, dictated and finalized at [facility]. Reviewed, dictated and finalized at [facility]. 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 Status post anterior and interbody spinal surgical fusion at L4-S1 Bilateral hip osteoarthritis
[2022-10-18 12:59] LABS: Estimated Glomerular Filt Rate > 60
== END 2022-10-18 12:28 | disposition home or self-care (01) ==
PROVIDERS: PCP Internal Medicine; Visit Provider Internal Medicine
DX: R10.32 Left lower quadrant pain (principal); R10.12 Left upper quadrant pain; R10.2 Pelvic and perineal pain; M16.0 Bilateral primary osteoarthritis of hip
CPT/HCPCS: 74177; Q9967

== ENCOUNTER 2022-11-13 00:27 | Day surgery (SDC) | payer OTHER, SELFPAY ==
[2022-10-29 14:06] VITALS: BMI 24.2
--- NOTE | 2022-11-12 13:44 | PM.HPGS ---
History of Present Illness History of Present Illness Consent: Risks, benefits, and alternatives have been discussed and questions answered. Patient agrees to proceed with procedure. Chief complaint: esophageal Stricture Narrative: Tho Ervin is a 62 year old male who had a meat impaction last month requiring emergency removal. At the time of endoscopy he was found to have a high-grade stricture of the distal esophagus as well as severe, grade 4 esophagitis. He returns now for follow-up to assess the degree of healing and for dilatation of a stricture. He had previously had a foreign body impaction in 2013 which required dilatation of a stricture. He also had dilatation in 2017 the same reason. Review of Systems Review of Systems: All systems reviewed & are unremarkable except as noted in HPI and below PMFSH Past Medical History Medical History Abdominal pain Abdominal pain BMI 24.0-24.9, adult Colon cancer screening Dyslipidemia Dysphagia Encounter for preventive health examination Hx of atrial fibrillation without current medication Hydrocele, left Low back pain Nocturia Non-healing skin lesion Patient denies medical problems Pilonidal cyst Pilonidal cyst without infection Prostate cancer screening Testicular pain L Testicular Pain Tinnitus, bilateral Vertigo Surgical History Surgical History Hx of cholecystectomy Previous back surgery S/P hernia repair Family History Family History Mother Stomach cancer Social History Social History Smoking status: Never smoker Alcohol intake: current Drinks per week: 1 Substance use type: does not use Lack of Transportation: No Lack of Food: Never True Current Housing: I Have Housing Concerned About Future Housing: No Difficulty Paying Gas/Electric Bills: No Difficulty Paying for Meds: No Currently Unemployed: No Education: Trade/Vocational Certificate Difficulty w/ Childcare or Family Care: No Living arrangements: with family Occupation/Education: occupation 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 Gender identity (if verbalized by the patient): Male Spiritual care concerns: No Meds Home Medications and Allergies Home Medications Medication Instructions Recorded Confirmed Type ascorbate calcium (vitamin C) 500 500 mg PO DAILY 02/05/22 10/29/22 History mg tablet biotin 10,000 mcg capsule 10,000 mcg PO DAILY 02/05/22 10/29/22 History cholecalciferol (vitamin D3) 25 25 mcg PO DAILY 02/05/22 10/29/22 History mcg (1,000 unit) capsule coenzyme Q10 200 mg/gram oral 200 mg PO DAILY 02/05/22 10/29/22 History powder (H2Q CoQ10) collagen protein 11 g BYMOUTH DAILY 02/05/22 10/29/22 History mecobalamin (vitamin B12) 1,000 1,000 mcg sublingual DAILY 02/05/22 10/29/22 History mcg disintegrating tablet,sublingual dextroamphetamine-amphetamine 20 20 mg PO DAILY #30 tabs 09/25/22 10/29/22 Rx mg tablet (Adderall) omeprazole 40 mg capsule,delayed 40 mg PO DAILY #90 caps 10/03/22 10/29/22 Rx release multivitamin with minerals-folic 1 tablet PO DAILY 10/29/22 10/29/22 History acid 0.4 mg tablet Allergies Allergy/AdvReac Type Severity Reaction Status Date / Time codeine Allergy Unknown Itching Verified 11/13/22 07:42 Exam Const: General: alert Orientation/consciousness: patient oriented x3 Resp: Auscultation: clear to auscultation bilaterally Cardio: Rhythm: regular rhythm GI: GI Palp: Yes Soft to palpation and No Tenderness to palpation present (GI) Neuro: General: patient oriented x3 Assessment and Plan Assessment and plan (1) Dysphagia: Code(s): R13.10 - Dysphagia, unspecified Status: Acute Assessment and Plan: EGD with possible biops
[2022-11-13 07:43] VITALS: BP 123/81; PULSE 61; RESP 18; TEMP 36.1; O2SAT 99
[2022-11-13] MEDS: LACTATED RINGERS 1,000 ML 150 ML IV CONT (07:45)
--- NOTE | 2022-11-13 08:51 | WPDANESEPPF ---
Anes - Initial Pre Proc Eval Procedure: Operation Date: 11/13/22 09:00 Proposed Procedures p Esophagogastroduodenoscopy - Vitaliy Ramirez MD Date/Time: 11/13/22 08:51 Surgeon: Vitaliy Ramirez MD Pre Op Diagnosis: esophageal Stricture Patient Data Age: 62 Gender: M Height: 1.83 m Weight: 78.4 kg Last Vital Signs Temp 97.0 F L 11/13/22 07:43 Pulse 61 11/13/22 07:43 Resp 18 11/13/22 07:43 BP 123/81 11/13/22 07:43 Pulse Ox 99 11/13/22 07:43 O2 Del Method Room Air 11/13/22 07:43 Allergies Allergy/AdvReac Type Severity Reaction Status Date / Time codeine Allergy Unknown Itching Verified 11/13/22 07:42 Home Medications Medication Instructions Recorded Confirmed Type ascorbate calcium (vitamin C) 500 500 mg PO DAILY 02/05/22 10/29/22 History mg tablet biotin 10,000 mcg capsule 10,000 mcg PO DAILY 02/05/22 10/29/22 History cholecalciferol (vitamin D3) 25 25 mcg PO DAILY 02/05/22 10/29/22 History mcg (1,000 unit) capsule coenzyme Q10 200 mg/gram oral 200 mg PO DAILY 02/05/22 10/29/22 History powder (H2Q CoQ10) collagen protein 11 g BYMOUTH DAILY 02/05/22 10/29/22 History mecobalamin (vitamin B12) 1,000 1,000 mcg sublingual DAILY 02/05/22 10/29/22 History mcg disintegrating tablet,sublingual dextroamphetamine-amphetamine 20 20 mg PO DAILY #30 tabs 09/25/22 10/29/22 Rx mg tablet (Adderall) omeprazole 40 mg capsule,delayed 40 mg PO DAILY #90 caps 10/03/22 10/29/22 Rx release multivitamin with minerals-folic 1 tablet PO DAILY 10/29/22 10/29/22 History acid 0.4 mg tablet Patient hx anesthesia problems: none Family hx anesthesia problems: none Results Review: All pre-operative results and documents have been reviewed as part of the pre-operative evaluation. [facility] Past Medical History Medical History Abdominal pain Abdominal pain BMI 24.0-24.9, adult Colon cancer screening Dyslipidemia Dysphagia Encounter for preventive health examination Hx of atrial fibrillation without current medication Hydrocele, left Low back pain Nocturia Non-healing skin lesion Patient denies medical problems Pilonidal cyst Pilonidal cyst without infection Prostate cancer screening Testicular pain L Testicular Pain Tinnitus, bilateral Vertigo Surgical History Surgical History Hx of cholecystectomy Previous back surgery S/P hernia repair Family History Family History Mother Stomach cancer Social History Social History Smoking status: Never smoker Alcohol intake: current Drinks per week: 1 Substance use type: does not use Lack of Transportation: No Lack of Food: Never True Current Housing: I Have Housing Concerned About Future Housing: No Difficulty Paying Gas/Electric Bills: No Difficulty Paying for Meds: No Currently Unemployed: No Education: Trade/Vocational Certificate Difficulty w/ Childcare or Family Care: No Living arrangements: with family Occupation/Education: occupation 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 Informed Consent: The patient's anesthetic plan and its attendant risks and benefits were discussed with the
[2022-11-13 09:11] VITALS: BP 100/67; PULSE 77; RESP 16; O2SAT 98
[2022-11-13 09:21] VITALS: BP 103/69; PULSE 71; RESP 17; O2SAT 100
[2022-11-13 09:31] VITALS: BP 102/72; PULSE 69; RESP 18; O2SAT 100
== END 2022-11-13 10:20 | disposition home or self-care (01) ==
PROVIDERS: PCP Internal Medicine; Visit Provider Internal Medicine Gastroenterology
PROC: 0DJ08ZZ Inspection of Upper Intestinal Tract, Via Natural or Artificial Opening Endoscopic (ICD-10-PCS; CPT 43235; principal; 2022-11-13 09:00)
DX: K22.2 Esophageal obstruction (principal); K21.00 Gastro-esophageal reflux disease with esophagitis, without bleeding
CPT/HCPCS: 43249; C1726; J2704; J7120

== ENCOUNTER 2023-01-22 12:23 | Outpatient (CLI) | payer OTHER, SELFPAY ==
--- NOTE | ~2023-01-22 | XR_ITS ---
Lumbosacral Spine: AP and lateral views Clinical History: Pain COMPARISON: 01/28/2022 Findings: The normal lordotic curve is maintained. There is stable anterior fixation hardware extendi ng from L4 through S1. Osseous alignment is unchanged from prior exam. Facet joint degenerative johnson es are present throughout the cervical spine. Stable mild compression deformity of L1. The sacroiliac joints are normally outlined. Impression: Chronic compression deformity of L1, stable from prior exam. Stable anterior fusion from L4 through S1. Mild degenerative changes, as above. Reviewed, dictated and finalized at [facility]. Impression: Chronic compression deformity of L1, stable from prior exam. Stable anterior fusion from L4 through S1. Mild degenerative changes, as above.
--- NOTE | ~2023-01-22 | XR_ITS ---
XR pelvis min 3V 01/22/2023 12:51 Indication: Radiculopathy Procedure: 2 views of the pelvis Comparison: No prior studies for comparison. Findings: Moderate-severe osteoarthritis of the hips. Pelvic rings are intact. No fracture or traumat ic malalignment. There are surgical changes consistent with fusion at the lumbosacral junction. Impression: 1: Moderate-severe osteoarthritis of the hips. Reviewed, dictated and finalized at location B. Impression: 1: Moderate-severe osteoarthritis of the hips.
== END 2023-01-22 12:24 | disposition home or self-care (01) ==
PROVIDERS: PCP Internal Medicine; Visit Provider Internal Medicine
DX: M54.50 Low back pain, unspecified (principal); M54.10 Radiculopathy, site unspecified; M16.0 Bilateral primary osteoarthritis of hip; M53.86 Other specified dorsopathies, lumbar region; Z98.1 Arthrodesis status
CPT/HCPCS: 72110; 72190

== ENCOUNTER 2023-01-29 00:54 | Emergency (ER) | payer OTHER, SELFPAY ==
[2023-01-29] VITALS (23 sets, daily range): BP systolic 96–152; BP diastolic 63–89; PULSE 74–94; RESP 14–22; TEMP 36.3; O2SAT 94–100
--- NOTE | ~2023-01-29 | XR_ITS ---
Clinical Indication: Chest pain AP and lateral views of the chest: Comparison: 09/25/2017 Findings: The lungs are clear, without evidence of focal consolidation or pleural effusion. Cardiome diastinal silhouette is within normal limits. Compression deformity of L2 noted. Impression: Clear lungs. Mild compression deformity of L2. Reviewed, dictated and finalized at location . Impression: Clear lungs. Mild compression deformity of L2.
--- NOTE | ~2023-01-29 | CT_ITS ---
Clinical Indication: Chest pain, dissection CT Scan of the Chest, Abdomen, and Pelvis with Contrast: Technique: Contiguous sections were acquired throughout the chest, abdomen, and pelvis after intraven ous administration of 100 cc of Omnipaque 350. Dose reduction technique was used on this scan by uti lizing automated exposure control and iterative reconstruction technique. The dose-length product (DL P) was 574.26 mGy-cm. COMPARISON: 10/18/2022 Findings: There is no evidence of any significant mediastinal, hilar or axillary lymphadenopathy. The mediastin al soft tissues appear normal. Thoracic aortic aneurysm or dissection. No large central pulmonary emb olus. There is no evidence of pleural or pericardial effusion. The lungs are clear, aside from probable bibasilar dependent atelectatic/hypoventilatory changes. The liver, spleen, pancreas, adrenals and kidneys are within normal limits. Cholecystectomy clips are noted. No evidence of abdominal aortic aneurysm or dissection. There are atherosclerotic calcificati ons of the aorta. No lymphadenopathy. No bowel obstruction or bowel wall thickening. There is no evidence to suggest acute appendicitis. Urinary bladder is unremarkable. Prostate gland is enlarged. Impression: No aortic aneurysm or dissection. Mild bibasilar atelectatic/hypoventilatory changes. Enlarged prostate gland. Reviewed, dictated and finalized at location . Impression: No aortic aneurysm or dissection. Mild bibasilar atelectatic/hypoventilatory changes. Enlarged prostate gland.
--- NOTE | 2023-01-29 00:59 | ECG_ITS ---
Measurements Intervals [place] Rate: 79 P: 73 RI: 174 QRS: -20 QRSD: 100 T: 48 QT: 384 QTc: 442 Interpretive Statements SINUS RHYTHM POSSIBLE LATERAL MYOCARDIAL INFARCTION , OF INDETERMINATE AGE [30 ms Q WAVE IN I/aVL/V5/V6] INFERIOR MYOCARDIAL INFARCTION , OF INDETERMINATE AGE WITH POSTERIOR EXTENSION [40+ ms Q WAVE AND/OR ST/T ABNORMALITY IN II/aV NO PREVIOUS ECG AVAILABLE FOR COMPARISON Electronically Signed On 01-29-2023 15:44:55 CDT by Gem Gee M.D.
[2023-01-29] MEDS: ASPIRIN 81 MG CHEWABLE TABLET 324 MG PO (01:31)
[2023-01-29 01:37] LABS: Basophils Absolute Auto 0.1 K/mm3 (0.0-0.1); Basophils Percent Auto 0.5 % (0.2-1.2); Eosinophils Absolute Auto 0.2 K/mm3 (0-0.3); Eosinophils Percent Auto 1.7 % (0-4.4); Hematocrit 49.9 % (42.0-52.0); Hemoglobin 16.7 g/dL (14.0-18.0); Immature Granulocyte Absolute 0.04 K/mm3 (0.00-0.031); Immature Granulocyte Percent A 0.4 % (0-0.5); Lymphocytes Absolute Auto 2.86 K/mm3 (0.9-3.2); Lymphocytes Percent Auto 25.8 % (18.3-44.2); Mean Corpuscular HGB Conc 33.5 g/dl (32-36); Mean Corpuscular Hemoglobin 31.2 pg (26-34); Mean Corpuscular Volume 93.3 fl (80-100); Mean Platelet Volume 8.7 fl (7.4-10.4); Monocytes Absolute Auto 0.9 K/mm3 (0.1-0.6); Monocytes Percent Auto 8.1 % (2.6-8.5); Neutrophils Percent Auto 63.5 % (45.5-73.1); Platelet Count Result 306 k/mm3 (150-375); Red Blood Count 5.35 M/mm3 (4.6-6.20); Red Cell Distribution Width 12.7 % (11.5-14.5); White Blood Count 11.1 K/mm3 (4.5-10.0)
--- NOTE | 2023-01-29 01:47 | ED.GENADULT ---
HPI - General Adult General Chief complaint: Chest Pain Stated complaint: chest pain Time Seen by Provider: 01/29/23 01:36 History of Present Illness HPI narrative: 62-year-old male no past medical history presented with abdominal pain and chest pain. Per patient he was in his usual state of health until 2 hours ago, at this time he started having generalized abdominal pain, right-sided nonradiating chest pain, nonexertional, intermittent. The pain continued so he presented to the ED for further evaluation. He denied shortness of breath, fevers, chills, nausea, vomiting, sick contacts, cough, dysuria, hematuria, diarrhea. Is having regular BM and passing flatus. Past medical history: Denied Past surgical history: Hernia repair Medications: Denied Allergies: No known drug allergies Social: Denied smoking, alcohol, recreational drugs Related Data Home Medications Medication Instructions Recorded Confirmed ascorbate calcium (vitamin C) 500 500 mg PO DAILY 02/05/22 01/23/23 mg tablet biotin 10,000 mcg capsule 10,000 mcg PO DAILY 02/05/22 01/23/23 cholecalciferol (vitamin D3) 25 25 mcg PO DAILY 02/05/22 01/23/23 mcg (1,000 unit) capsule collagen protein 11 g BYMOUTH DAILY 02/05/22 01/23/23 mecobalamin (vitamin B12) 1,000 1,000 mcg sublingual DAILY 02/05/22 01/23/23 mcg disintegrating tablet,sublingual multivitamin with minerals-folic 1 tablet PO DAILY 10/29/22 01/23/23 acid 0.4 mg tablet coenzyme Q10 200 mg/gram oral 200 mg PO DAILY PRN 01/22/23 01/23/23 powder (H2Q CoQ10) Allergies Allergy/AdvReac Type Severity Reaction Status Date / Time codeine Allergy Unknown Itching Verified 01/22/23 11:32 Review of Systems Review of Systems: See HPI [facility] Past Medical History Medical History Abdominal pain BMI 23.0-23.9, adult BMI 24.0-24.9, adult Colon cancer screening Dyslipidemia Dysphagia Encounter for preventive health examination Hx of atrial fibrillation without current medication Hydrocele, left Impacted foreign body in esophagus Low back pain Nocturia Non-healing skin lesion Patient denies medical problems Pilonidal cyst Pilonidal cyst without infection Prostate cancer screening Radicular low back pain Testicular pain L Testicular Pain Tick bite Tinnitus, bilateral Vertigo Surgical History Surgical History Hx of cholecystectomy Previous back surgery S/P hernia repair Family History Family History Mother Stomach cancer Social History Social History Smoking status: Never smoker Alcohol intake: current Drinks per week: 1 Substance use type: does not use Lack of Transportation: No Lack of Food: Never True Current Housing: I Have Housing Concerned About Future Housing: No Difficulty Paying Gas/Electric Bills: No Difficulty Paying for Meds: No Currently Unemployed: No Education: Trade/Vocational Certificate Difficulty w/ Childcare or Family Care: No Living arrangements: with family Occupation/Education: occupation 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 Gender identity (if verbalized by the patient): Male Spiritual care concerns: No Exam Narrative: APPEARANCE: Alert, calm and cooperative, no acute distress, phonating, sitting comfortably during visit HEAD: atraumatic EYES: Pupils equal round an reactive to light, extra ocular movements intact, no conjunctival injection NOSE: Normal no drainage NECK: Supple, without meningismus RESPIRATORY: Lungs clear to auscultation bilaterally, no wheezes/rales/rhonchi, breathing comfortably CARDIOVASCULAR: Regular rate and rhythm, no visible jugular venous distension ABDOMINAL: Soft, nontender, nondistended, no guarding, no rebound/peritoneal signs, no costovertebral tenderness to palpati
[2023-01-29 01:49] LABS: Partial Thromboplastin Time 27.6 SECONDS (22.3-36.8)
[2023-01-29 01:58] LABS: Alanine Aminotransferase 28 U/L (6-50); Albumin Level 4.4 g/dL (3.5-5.1); Alkaline Phosphatase 59 U/L (38-126); Anion Gap 8 mmol/L (8-16); Aspartate Amino Transferase 26 U/L (17-59); Bilirubin,Total 0.6 mg/dL (0.2-1.3); Blood Urea Nitrogen 16 mg/dL (9-20); Calcium 9.4 mg/dL (8.4-10.2); Carbon Dioxide 30 mmol/L (22-30); Chloride 101 mmol/L (98-107); Estimated Glomerular Filt Rate > 60; Glucose 117 mg/dL (65-110); Lipase 154 U/L (23-300); Potassium 3.7 mmol/L (3.4-5.0); Sodium 139 mmol/L (137-145)
[2023-01-29 02:09] LABS: Troponin I < 0.012 ng/mL (0.000-0.034)
[2023-01-29] MEDS: MAG HYDROX/AL HYDROX/SIMETH 30 ML UDC PO (03:53)
[2023-01-29] MEDS: FAMOTIDINE 20 MG/2 ML VIAL IV PUSH (03:54)
--- NOTE | 2023-01-29 04:15 | ECG_ITS ---
Measurements Intervals [place] Rate: 86 P: 67 DC: 200 QRS: -11 QRSD: 87 T: 49 QT: 364 QTc: 436 Interpretive Statements SINUS RHYTHM SUBTLE ST ELEVATION IN INFERIOR LEADS, CONSIDER INFERIOR INJURY [MARKED ST ELEVATION W/O NORMALLY INFLECTED T WAVE IN II/aVF] COMPARED TO ECG 01/29/2023 01:02:[address] ELEVATION IN INFERIOR LEADS Electronically Signed On 01-29-2023 15:52:12 CDT by Gem Gee M.D.
[2023-01-29 04:31] LABS: Troponin I < 0.012 ng/mL (0.000-0.034)
[2023-01-29] MEDS: SODIUM CHLORIDE 0.9% IV 1,000 ML 999 ML IV CONT (04:33)
[2023-01-29] MEDS: MORPHINE SULFATE (*CRX) 4 MG/ML INJ IV PUSH (04:57)
[2023-01-29] MEDS: HEPARIN SOD/D5W 100 UNITS/ML 25,000 UNITS/250 ML BAG 8.18 UNITS IV CONT (05:10)
[2023-01-29] MEDS: HEPARIN SODIUM 5,000 UNITS/ML VIAL 4000 UNITS IV PUSH (05:10)
== END 2023-01-29 05:43 | disposition short-term general hospital (02) ==
PROVIDERS: Emergency Provider Emergency Medicine; PCP Internal Medicine
DX: I21.3 ST elevation (STEMI) myocardial infarction of unspecified site (principal); E78.5 Hyperlipidemia, unspecified; I48.91 Unspecified atrial fibrillation; Z90.49 Acquired absence of other specified parts of digestive tract; N40.0 Benign prostatic hyperplasia without lower urinary tract symptoms
CPT/HCPCS: 36415; 71046; 71275; 74174; 80053; 83690; 84484; 85025; 85610; 85730; 93005; 96361; 96374; 96375; 96376; 99284; A9270; J1644; J2270; J7030; Q9967

== ENCOUNTER 2023-09-01 09:48 | Outpatient (CLI) | payer MEDICARE, SELFPAY ==
--- NOTE | ~2023-09-01 | CT_ITS ---
EXAMINATION: CT soft tissue neck w con DATE: 09/01/2023 10:27 INDICATION: Sialoadenitis, unspecified. Mouth pain. TECHNIQUE: Computed tomography (CT) of the neck was performed with 75 mL Omnipaque-350 intravenous co ntrast. Automated exposure control and iterative reconstruction technique were employed. The dose-po gth product was 551.75 mGy-cm. COMPARISON: Neck CT 02/05/2021 FINDINGS: There are likely changes of ocular lens replacement surgeries. There are no pathologically enlarged lymph nodes. There is plaque in the proximal internal carotid arteries with 0% stenosis rela tive to normal distal artery lumen diameters. The major salivary glands are normal. There is no sialo lith. There is mild thickening in the paranasal sinuses. The mastoid air cells are normal. IMPRESSION: 1. Normal major salivary glands. No sialolith. Reviewed, dictated and finalized at location E. EDUCATOR
[2023-09-01 10:18] LABS: Estimated Glomerular Filt Rate > 60
== END 2023-09-01 09:49 | disposition home or self-care (01) ==
LOC: ANHIMG 09:50
PROVIDERS: PCP Internal Medicine; Visit Provider Internal Medicine
DX: K11.20 Sialoadenitis, unspecified (principal)
CPT/HCPCS: 70491; Q9967

== ENCOUNTER 2023-10-11 11:00 | Outpatient (CLI) | payer MEDICARE, SELFPAY ==
--- NOTE | ~2023-10-11 | XR_ITS ---
EXAM: XR_CERV2-3V_CR DATE: 10/11/2023 11:19 HISTORY: TORTICOLLIS, RECENT STEROID SHOT TO RELEASE . COMPARISON: CT soft tissue neck 09/01/2023. FINDINGS: Craniocervical association and atlantoaxial joint are aligned. No prevertebral soft tissue swelling. Trace retrolistheses at C3-4 and C6-7. 2 mm anterolisthesis at C4-5 Vertebral body heights are maintained. Moderate disc space narrowing and marginal osteophytosis at C3-4 and C5-6. Multileve l moderate facet hypertrophy IMPRESSION: Multilevel grade 1 listheses, likely on a degenerative basis. Moderate degenerative disc disease at C3-4 and C5-6. Multilevel moderate facet arthropathy. Reviewed, dictated and finalized at location K. [employer] IMPRESSION: Multilevel grade 1 listheses, likely on a degenerative basis. Moder ate degenerative disc disease at C3-4 and C5-6. Multilevel moderate facet arthr opathy.
== END 2023-10-11 11:01 | disposition home or self-care (01) ==
PROVIDERS: PCP Internal Medicine; Visit Provider Internal Medicine
DX: M43.6 Torticollis (principal); M50.322 Other cervical disc degeneration at C5-C6 level; M50.31 Other cervical disc degeneration, high cervical region; M47.812 Spondylosis without myelopathy or radiculopathy, cervical region
CPT/HCPCS: 72040

== ENCOUNTER 2024-05-24 11:52 | Outpatient (CLI) | payer MEDICARE, SELFPAY ==
--- NOTE | ~2024-05-24 | CT_ITS ---
EXAMINATION: CT abdomen pelvis w con DATE: 05/24/2024 12:50 INDICATION: Pelvic and perineal pain. TECHNIQUE: Computed tomography (CT) of the abdomen and pelvis was performed with 100 mL Omnipaque-350 intravenous contrast. Automated exposure control and iterative reconstruction technique were employe d. The dose-length product was 552.99 mGy-cm. COMPARISON: 01/29/2023 FINDINGS: Lung bases are clear. Heart size is normal. Atherosclerotic coronary artery calcific location. No per icardial or pleural effusion. Cholecystectomy clips the gallbladder fossa. Liver, spleen, pancreas, b ilateral adrenal glands and kidneys are normal. There is mild scattered colonic diverticulosis withou t small bowel and appendix are normal. Adjacent inflammatory change to suggest diverticulitis. Prosta tomegaly measuring 5.9 x 5.1 cm. Bladder is normal. No free intraperitoneal gas or fluid. Chronic T12 and L1 compression fractures with mild to moderate lumbar and lower thoracic spondylosis. L4-S1 inst rumented anterior spinal fusion. IMPRESSION: 1. No acute intra-abdominal/pelvic process. 2. Prostatomegaly. Reviewed, dictated and finalized at location A.
[2024-05-24 12:26] LABS: Basophils Absolute Auto 0.1 K/mm3 (0.0-0.1); Basophils Percent Auto 0.8 % (0.2-1.2); Eosinophils Absolute Auto 0.2 K/mm3 (0-0.3); Eosinophils Percent Auto 2.6 % (0-4.4); Hematocrit 50.6 % (42.0-52.0); Hemoglobin 17.2 g/dL (14.0-18.0); Lymphocytes Absolute Auto 2.25 K/mm3 (0.9-3.2); Lymphocytes Percent Auto 33.9 % (18.3-44.2); Mean Corpuscular Hemoglobin 32.3 pg (26-34); Mean Corpuscular Volume 94.9 fl (80-100); Mean Platelet Volume 8.9 fl (7.4-10.4); Monocytes Absolute Auto 0.7 K/mm3 (0.1-0.6); Monocytes Percent Auto 10.4 % (2.6-8.5); Neutrophils Absolute Auto 3.5 K/mm3 (1.3-6.7); Neutrophils Percent Auto 52.3 % (45.5-73.1); Platelet Count Result 274 k/mm3 (150-375); Red Blood Count 5.33 M/mm3 (4.6-6.20); Red Cell Distribution Width 12.4 % (11.5-14.5); White Blood Count 6.6 K/mm3 (4.5-10.0)
[2024-05-24 12:31] LABS: Add Urine Microscopic? YES; Appearance Urine Clear (Clear); Bacteria Urine None Seen /hpf; Bilirubin Urine Negative (Negative); Blood Urine Negative (Negative); Color Urine Yellow (Yellow); Glucose Urine UA Negative (Negative); Ketones Urine Negative (Negative); Leukocyte Esterase Ur Trace LEU/UL (Negative); Nitrate Urine Negative (Negative); Non Pathogenic Casts 0-2; Protein Urine Negative (Negative); RBC Urine 0-2 /hpf (0-2); Specific Grav Ur 1.009 (1.001-1.035); Squamous Epithelial Cell Urine None Seen /hpf (Few); Urobilinogen Urine 0.2 mg/dL (<2.0); WBC Urine 0-5 /hpf (0-3); pH Urine 5.5 (5.0-9.0)
[2024-05-24 12:43] LABS: Estimated Glomerular Filt Rate > 60
[2024-05-24 12:44] LABS: Partial Thromboplastin Time 24.9 Seconds (22.3-36.8); Prothrombin Time 13.4 Seconds (11.1-14.7)
[2024-05-24 12:56] LABS: Free T4 Free Thyroxine 0.98 ng/mL (0.78-2.19); Hemoglobin A1C 5.8 % (<5.7); Vitamin D 25 Hydroxy 66.7 ng/mL
[2024-05-24 16:31] LABS: Alanine Aminotransferase 26 U/L (6-50); Albumin Level 4.7 g/dL (3.5-5.1); Alkaline Phosphatase 61 U/L (38-126); Anion Gap 9 mmol/L (4-12); Aspartate Amino Transferase 26 U/L (17-59); Bilirubin,Total 0.6 mg/dL (0.2-1.3); Blood Urea Nitrogen 18 mg/dL (9-20); Calcium 9.4 mg/dL (8.4-10.2); Carbon Dioxide 30 mmol/L (22-30); Chloride 99 mmol/L (98-107); Cholesterol 210 mg/dL (0-200); Estimated Glomerular Filt Rate > 60; Glucose 101 mg/dL (65-110); HDL Direct 34 mg/dL; Potassium 4.7 mmol/L (3.4-5.0); Sodium 138 mmol/L (137-145); Triglycerides 241 mg/dL (<150)
[2024-05-24 16:44] LABS: LDL Cholesterol Direct 144 mg/dL
[2024-05-24 20:45] LABS: Prostate Specific Antigen 2.4 ng/mL (< OR = 4.0); Thyroid Stimulating Hormone 0.016 uIU/mL (0.465-4.680)
== END 2024-05-24 11:53 | disposition home or self-care (01) ==
PROVIDERS: PCP Internal Medicine; Visit Provider Internal Medicine
DX: N40.0 Benign prostatic hyperplasia without lower urinary tract symptoms (principal); I12.9 Hypertensive chronic kidney disease with stage 1 through stage 4 chronic kidney disease, or unspecified chronic kidney disease; N18.4 Chronic kidney disease, stage 4 (severe); E78.5 Hyperlipidemia, unspecified; E55.9 Vitamin D deficiency, unspecified; M79.89 Other specified soft tissue disorders; M79.604 Pain in right leg; Z79.899 Other long term (current) drug therapy; Z13.1 Encounter for screening for diabetes mellitus; Z13.29 Encounter for screening for other suspected endocrine disorder
CPT/HCPCS: 36415; 74177; 80053; 80061; 81001; 82306; 83036; 84153; 84439; 84443; 85025; 85610; 85730; Q9967

== ENCOUNTER 2024-09-29 10:21 | Outpatient (CLI) | payer MEDICARE, SELFPAY ==
--- NOTE | ~2024-09-29 | US_ITS ---
LEFT LOWER EXTREMITY VENOUS ULTRASOUND Ordering provider: Jerrell Dangelo, History: . leg pain . Comparison: None. FINDINGS: --COMMON FEMORAL: Patent and free of thrombus. Normal compressibility, phasic flow and augmentation. --PROXIMAL SUPERFICIAL FEMORAL: Patent and free of thrombus. Normal compressibility, phasic flow and augmentation. --DISTAL SUPERFICIAL FEMORAL: Patent and free of thrombus. Normal compressibility, phasic flow and au gmentation. --POPLITEAL: Patent and free of thrombus. Normal compressibility, phasic flow and augmentation. --POSTERIOR TIBIAL: Patent and free of thrombus. Normal compressibility, phasic flow and augmentation . IMPRESSION: Negative left lower extremity venous US. No deep vein thrombosis. Reviewed, dictated and finalized at location A. NURSE
== END 2024-09-29 10:22 | disposition home or self-care (01) ==
PROVIDERS: PCP Internal Medicine
DX: M79.605 Pain in left leg (principal)
CPT/HCPCS: 93971

== ENCOUNTER 2025-07-19 00:35 | Day surgery (SDC) | payer MEDICARE, SELFPAY ==
[2025-07-05 09:25] VITALS: BMI 24.0
[2025-07-19 09:20] VITALS: BP 120/87; PULSE 68; RESP 16; TEMP 36.2; O2SAT 98; BMI 22.5
[2025-07-19] MEDS: LACTATED RINGERS 1,000 ML 150 ML IV CONT (09:41)
--- NOTE | 2025-07-19 09:41 | P.PNAN_ITS ---
Anes - Initial Pre Proc Eval Procedure: Operation Date: 07/19/25 10:30 Proposed Procedures p Esophagogastroduodenoscopy&Screen Colon - Camron Zhou MD Date/Time: 07/19/25 09:41 Surgeon: Camron Zhou MD Pre Op Diagnosis: Dysphagia, unspecified Patient Data Age: 65 Gender: M Height: 1.83 m Weight: 80.3 kg Allergies Allergy/AdvReac Type Severity Reaction Status Date / Time codeine Allergy Unknown Itching Verified 07/19/25 09:29 Home Medications ?Medication ?Instructions ?Recorded ?Confirmed ?Type biotin 10,000 mcg capsule 10,000 mcg PO DAILY 02/05/22 07/19/25 History cholecalciferol (vitamin D3) 25 25 mcg PO DAILY 07/19/25 History mcg (1,000 unit) capsule mecobalamin (vitamin B12) 1,000 1,000 mcg sublingual D AILY 02/05/22 07/19/25 History mcg disintegrating tablet,sublingual multivitamin with minerals-folic 1 tablet PO DAILY 07/19/25 History acid 0.4 mg tablet dextroamphetamine-amphetamine 20 20 mg PO DAILY #30 ta bs 05/10/25 07/19/25 Rx mg tablet (Adderall) omeprazole 20 mg capsule,delayed 20 mg PO DAILY PRN GE RD #90 caps 05/10/25 07/07/25 Rx release nystatin-triamcinolone 100,000 1 applic topical BID #6 0 grams 07/07/25 07/07/25 Rx unit/g-0.1 % topical cream Patient hx anesthesia problems: none Family hx anesthesia problems: none Results Review: All pre-operative results and documents have been reviewed as part of the pre- operative evaluation. [facility] Past Medical History Medical History (Updated 07/18/25 @ 09:46 by Dequan Kumar DO) Atrial fibrillation Palpable mass of lower back Anal itching Night sweats BMI 22.0-22.9, adult Sore throat Encounter for routine adult health examination with abnormal findings BPH (benign prostatic hyperplasia) Preoperative clearance Leg weakness, bilateral Hypersomnolence DJD (degenerative joint disease) of knee BMI 25.0-25.9,adult Encounter for routine adult health examination without abnormal findings Pericarditis BMI 23.0-23.9, adult Radicular low back pain Impacted foreign body in esophagus Dysphagia Pilonidal cyst Encounter for preventive health examination Tinnitus, bilateral Vertigo Pilonidal cyst without infection BPPV (benign paroxysmal positional vertigo) Tick bite Rectal bleeding Low back pain Non-healing skin lesion Colon cancer screening Hx of atrial fibrillation without current medication Hydrocele, left Testicular pain Abdominal pain Prostate cancer screening Dyslipidemia Nocturia BMI 24.0-24.9, adult Encounter to establish care with new doctor Patient denies medical problems Surgical History Surgical History (Reviewed 07/07/25 @ 12:04 by Kelsy Garvin [facility]) History of incisional hernia repair S/P hernia repair Hx of cholecystectomy Previous back surgery Family History Family History (Reviewed 07/07/25 @ 12:04 by Kelsy Garvin [facility]) Mother Stomach cancer Social History Social History (Reviewed 07/07/25 @ 12:04 by Kelsy Garvin [facility]) Smoking status: Never smoker Alcohol intake: current Drinks per week: 1 Substance use: former Substance use type: does not use Lack of Transportation: No Lack of Food: Never True Current Housing: I Have Housing Concerned About Future Housing: No Difficulty Paying Gas/Electric Bills: No Difficulty Paying for Meds: No Currently Unemployed: No Education: Trade/Vocational Certificate Difficulty w/ Childcare or Family Care: No Living arrangements: with family Occupation/Education: occupation Additional occupation/education comments: [employer] Gender identity (if verbalized by the patient): Male Spiritual care concerns: No Anes - Eval Final PreProcedure Day of Procedure 07/19/25 09:41 Patient weight: normal Heart: regular rate and rhythm Lungs: clear to auscultation and normal air movement Airway: Mallampati scale class II Neurological: alert and oriented Last oral intake: >/= 8 hours ASA classification: III Emergent: no Anesthetic plan: proceed Anesthesia type and monitoring: general GIVS and standard monitoring Results Review: All pre-operative results and documents have been reviewed as part of the pre- operative evaluation. Informed Consent: The patient's anesthetic plan and its attendant risks and benefits were dis cussed with the patient/family/POA. Questions were solicited and answers provided to the satisfaction of the patient/family/POA.
[2025-07-19] MEDS: SIMETHICONE ORAL SUSPENSION 20 MG/0.3 ML 30 ML BOTTLE 1.8 ML PO (09:42)
--- NOTE | 2025-07-19 10:37 | PM.IMHP ---
H&P: HPI History of Present Illness Date/Time: 07/19/25 10:37 Chief Complaint: Dysphagia- history of colon polyps Narrative: this patient has a longstanding history of dysphagia, and in September 2022 he had a food bolus impaction. A lower esophageal stricture was found and dilated. He is taking omeprazole only on a p.r.n. basis and experiences heartburn and occasional dysphagia to solids. In the same year, 2.8 cm tubulovillous adenoma was removed from the sigmoid. He comes today for EGD and possible dilatation of stricture, and surveillance colonoscopy. Review of Systems Review of Systems: All systems reviewed & are unremarkable except as noted in HPI and below [facility] Past Medical History Medical History (Updated 07/19/25 @ 10:40 by Camron Zhou MD) Atrial fibrillation Palpable mass of lower back Anal itching Night sweats BMI 22.0-22.9, adult Sore throat Encounter for routine adult health examination with abnormal findings BPH (benign prostatic hyperplasia) Preoperative clearance Leg weakness, bilateral Hypersomnolence DJD (degenerative joint disease) of knee BMI 25.0-25.9,adult Encounter for routine adult health examination without abnormal findings Pericarditis BMI 23.0-23.9, adult Radicular low back pain Impacted foreign body in esophagus Dysphagia Pilonidal cyst Encounter for preventive health examination Tinnitus, bilateral Vertigo Pilonidal cyst without infection BPPV (benign paroxysmal positional vertigo) Tick bite Rectal bleeding Low back pain Non-healing skin lesion Colon cancer screening Hx of atrial fibrillation without current medication Hydrocele, left Testicular pain Abdominal pain Prostate cancer screening Dyslipidemia Nocturia BMI 24.0-24.9, adult Encounter to establish care with new doctor Patient denies medical problems Surgical History Surgical History History of incisional hernia repair S/P hernia repair Hx of cholecystectomy Previous back surgery Family History Family History Mother Stomach cancer Social History Social History Smoking status: Never smoker Alcohol intake: current Drinks per week: 1 Substance use: former Substance use type: does not use Lack of Transportation: No Lack of Food: Never True Current Housing: I Have Housing Concerned About Future Housing: No Difficulty Paying Gas/Electric Bills: No Difficulty Paying for Meds: No Currently Unemployed: No Education: Trade/Vocational Certificate Difficulty w/ Childcare or Family Care: No Living arrangements: with family Occupation/Education: occupation 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 Gender identity (if verbalized by the patient): Male Spiritual care concerns: No Meds Home Medications and Allergies Home Medications ?Medication ?Instructions ?Recorded ?Confirmed ?Type biotin 10,000 mcg capsule 10,000 mcg PO DAILY 02/05/22 07/19/25 History cholecalciferol (vitamin D3) 25 25 mcg PO DAILY 02/05/22 07/19/25 History mcg (1,000 unit) capsule mecobalamin (vitamin B12) 1,000 1,000 mcg sublingual DAILY 02/05/22 07/19/25 History mcg disintegrating tablet,sublingual multivitamin with minerals-folic 1 tablet PO DAILY 10/29/22 07/19/25 History acid 0.4 mg tablet dextroamphetamine-amphetamine 20 20 mg PO DAILY #30 tabs 05/10/25 07/19/25 Rx mg tablet (Adderall) omeprazole 20 mg capsule,delayed 20 mg PO DAILY PRN GERD #90 caps 05/10/25 07/07/25 Rx release nystatin-triamcinolone 100,000 1 applic topical BID #60 grams 07/07/25 07/07/25 Rx unit/g-0.1 % topical cream Allergies Allergy/AdvReac Type Severity Reaction Status Date / Time codeine Allergy Unknown Itching Verified 07/19/25 09:29 Vital Signs Vital Signs - 24 hr 07/19/25 09:20 Temperature 97.2 F L Pulse Rate 68 Respiratory Rate 16 Blood Pressure 120/87 Pulse Oximetry 98 Oxygen Delivery Room Air Exam Const: General: cooperative and healthy appearing Resp: Effort & Inspection: normal respiratory effort and able to speak in complete sentences Auscultation: clear to auscultation bilaterally Cardio: Rate: regular rate Rhythm: regular rhythm GI: Inspection: normal to inspection GI Palp: No No hepatosplenomegaly present Auscultation: normal bowel sounds Rectal Exam: deferred Skin: General skin exam: normal color Psych: Appearance: grossly normal Mental Status: mental status grossly normal Assessment and Plan Assessment and plan (1) GERD (gastroesophageal reflux disease): Code(s): K21.9 - Gastro-esophageal reflux disease without esophagitis Status: Acute Assessment and Plan: The patient is deemed a good candidate for the procedures. Consent signed. Will proceed. (2) History of colonic polyps: Code(s): Z86.0100 - Personal history of colon polyps, unspecified Status: Acute
--- NOTE | 2025-07-19 10:49 | SUR.OPER ---
EGD:[id number] Colon:[id number]
--- NOTE | 2025-07-19 10:55 | S_PTH ---
PATIENT: Tho Ervin LOC: [facility] U#:[id number] AGE/SX: 65/M ROOM: RE07/19/[address]: Camron Zhou MD : 1960 BED: DIS: 07/19/2025 SPEC #: [id number] RECD: 07/19/25 11:24 STATUS: [place] REFadumo #: [id number] ANN: 07/19/25 10:[address]: Camron Zhou DEPT: [facility] Surgical RECD BY: Gracy Contreras ENTERED: 07/19/25 11:26 SP TYPE: Surgical OTHR DR: Александр Saunders MD Tissues: A - Gastric Biopsy B - Gastric Biopsy C - Esophageal Biopsy Procedures: Hematoxylin and Eosin Stain Gross and Microscopic Level 4
[2025-07-19] MEDS: SIMETHICONE ORAL SUSPENSION 20 MG/0.3 ML 30 ML BOTTLE 0.6 ML IRRIGATION (11:11)
[2025-07-19 11:18] VITALS: BP 104/74; PULSE 68; RESP 17; O2SAT 99
[2025-07-19 11:28] VITALS: BP 104/74; PULSE 68; RESP 17; O2SAT 99
[2025-07-19 11:38] VITALS: BP 122/84; PULSE 77; RESP 18; O2SAT 99
[2025-07-19 11:48] VITALS: BP 124/89; PULSE 74; RESP 24; O2SAT 99
[2025-07-19 11:58] VITALS: BP 123/79; PULSE 70; RESP 20; O2SAT 99
== END 2025-07-19 12:00 | disposition home or self-care (01) ==
PROVIDERS: PCP Internal Medicine; Referring Provider Internal Medicine; Visit Provider Internal Medicine Gastroenterology
PROC: 0DJ08ZZ Inspection of Upper Intestinal Tract, Via Natural or Artificial Opening Endoscopic (ICD-10-PCS; CPT 45378; principal; 2025-07-19 10:30)
DX: K21.9 Gastro-esophageal reflux disease without esophagitis (principal); K57.30 Diverticulosis of large intestine without perforation or abscess without bleeding; K29.50 Unspecified chronic gastritis without bleeding; B96.81 Helicobacter pylori [H. pylori] as the cause of diseases classified elsewhere; K44.9 Diaphragmatic hernia without obstruction or gangrene; E78.5 Hyperlipidemia, unspecified; I48.91 Unspecified atrial fibrillation; N40.0 Benign prostatic hyperplasia without lower urinary tract symptoms; G47.10 Hypersomnia, unspecified; M17.10 Unilateral primary osteoarthritis, unspecified knee; Z98.890 Other specified postprocedural states; Z90.49 Acquired absence of other specified parts of digestive tract; Z98.1 Arthrodesis status; Z86.0100 Personal history of colon polyps, unspecified; Z80.0 Family history of malignant neoplasm of digestive organs
CPT/HCPCS: 43239; 45378; 88305; J2003; J2704; J7120

== ENCOUNTER 2025-08-01 14:48 | Outpatient (CLI) | payer MEDICARE, SELFPAY ==
--- NOTE | ~2025-08-01 | US_ITS ---
EXAMINATION: US soft tissue lower back, 08/01/2025 15:05 CDT HISTORY: R22.2 - Localized swelling, mass and lump, trunk Comparison: None Technique: Azar-scale and color Doppler images were obtained. Findings: Correlating with the palpable area there is no abnormal mass or mass effect, no abnormal flow IMPRESSION: Unremarkable exam Reviewed, dictated and finalized at location P. IMPRESSION: Unremarkable exam
--- OUTSIDE RECORDS SUMMARY | 2025-08-01 17:25 | XMS_ITS | Encounter Summary ---
Author Organization [facility] Address [address] [place] [address] Care Team Providers Care Deputy Juvenile Officer Name Role Phone Unavailable Primary Care Provider Unavailabl e Encounter Details Date Type Department Care Team (Late st Contact Info) Description 07/30/2004 Outpatient Historical [facility] Support Serv. (Adt [facility]iology[facility]) [address] 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
--- OUTSIDE RECORDS SUMMARY | 2025-08-01 17:25 | XMS_ITS | Encounter Summary ---
Author Organization [facility] Address [address] [place] [address] Care Team Providers Care Autism Specialist Name Role Phone Unavailable Primary Care Provider Unavailabl e Encounter Details Date Type Department Care Team (Late st Contact Info) Description 07/31/2004 Outpatient Historical [facility] [place] [place] Support Serv. ([facility]iology[facility]) [address] 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
--- OUTSIDE RECORDS SUMMARY | 2025-08-01 17:25 | XMS_ITS | Encounter Summary ---
Author Organization [facility] Address 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
--- OUTSIDE RECORDS SUMMARY | 2025-08-01 17:25 | XMS_ITS | Encounter Summary ---
Author Organization [facility] Address [address] [place] [address] Care Team Providers Care Echocardiologist Name Role Phone Unavailable Primary Care Provider Unavailabl e Encounter Details Date Type Department Care Team (Late st Contact Info) Description 04/13/2003 Outpatient Historical [facility] [address] 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
--- OUTSIDE RECORDS SUMMARY | 2025-08-01 17:25 | XMS_ITS | Encounter Summary ---
Author Organization [facility] Address [address] [place] [address] Care Team Providers Care Screw Machine Tender Name Role Phone Unavailable Primary Care Provider Unavailabl e Encounter Details Date Type Department Care Team (Late st Contact Info) Description 03/15/2003 [facility] [address] [place] [phone] Elisa Jaime MD Social History Tobacco Use Types Packs/Day Years Used Date Smoking Tobacco: Never Assessed Sex and Gender Information Value Date Recorded Sex Assigned at Not on file Legal Sex Male 3:56 AM BAR BACK Gender Identity Not on file Sexual Orientation Not on file documented as of this encounter Plan of Treatment Not on file documented as of this encounter Visit Diagnoses Not on filedocumented in this encounter
--- OUTSIDE RECORDS SUMMARY | 2025-08-01 17:25 | XMS_ITS | Encounter Summary ---
Author Organization [facility] Address [address] 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
--- OUTSIDE RECORDS SUMMARY | 2025-08-01 17:25 | XMS_ITS | Encounter Summary ---
Author Organization [facility] Address [address] [place] [address] Care Team Providers Care General Production Worker Name Role Phone Unavailable Primary Care Provider Unavailabl e Encounter Details Date Type Department Care Team (Late st Contact Info) Description 03/16/2003 Outpatient Historical [facility] Support [facility] ([facility]iology[facility]) [address] 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
--- OUTSIDE RECORDS SUMMARY | 2025-08-01 17:25 | XMS_ITS | Clinical Summary ---
Author Organization [facility] Address [facility] [place] [address] Care Team Providers Care Film Composer Name Role Phone Александр Saunders MD Primary Care Provider [phone] Allergies Active Allergy Reactions Criticality Noted Date Comments Codeine Unknown 11/02/2019 Medications amphetamine-dext roamphetamine (ADDERALL) 20 MG tablet Take 1 tablet (20 mg total) by mouth daily. Active aspirin EC (ECOTRIN) 325 MG tablet 3 Active Cholecalciferol 50 MCG (1999 UT) Cap Take by mouth 1 (one) time each day Active Coenzyme Q10 200 MG Cap Take 200 mg by mouth. Active Cyanocobalamin (B-12) 1000 MCG Tab Take 1,000 mcg by mouth. Active ketorolac (ACULAR) 0.5 % ophthalmic solution ketorolac 0.5 % eye drops Active LORazepam (ATIVAN) 1 MG tablet lorazepam 1 mg tablet TK 1 T PO TID PRN FOR ANXIETY Active omeprazole (PRILOSEC) 20 MG capsule Take 1 capsule (20 mg total) by mouth daily. Active omeprazole (PRILOSEC) 40 MG capsule Take 1 capsule (40 mg total) by mouth daily. Active cyclobenzaprine (FLEXERIL) 10 MG tablet Take 1 tablet (10 mg total) by mouth 3 (three) times daily as needed for Muscle Spasms. 3 Active Alprostadil, Vasodilator, (MUSE) 500 MCG PELLETIndication s:Erectile dysfunction, unspecified erectile dysfunction type place 500 mcg into the urethra as needed. 6 each 3 4 Active Active Problems No known active problems Family History Medical History Relation Comments Stomach cancer Mother Relation Status Comments Mother Social History Tobacco Use Types Packs/Day Years Used Date Smoking Tobacco: Never Smokeless Tobacco: Never Tobacco Cessation:Counseling Given: No PHQ-2 Answer Date Recorded Patient Health Questionnaire-2 Score 0 06/03/2024 Sex and Gender Information Value Date Recorded Sex Assigned at Not on file Legal Sex Male 4:37 PM CDT Gender Identity Not on file Sexual Orientation Not on file Last Filed Vital Signs Vital Sign Reading Time Taken Comments Blood Pressure 118/79 06/03/2024 3:56 PM CDT Pulse 72 06/03/2024 3:56 PM CDT Temperature - - Respiratory Rate 16 06/03/2024 3:56 PM CDT Oxygen Saturation 94% 06/03/2024 3:56 PM CDT Inhaled Oxygen Concentration - - Weight 80.3 kg (177 lb) 06/03/2024 3:56 PM CDT Height 182.9 cm (6') 06/03/2024 3:56 PM CDT Body Mass Index 24.01 06/03/2024 3:56 PM CDT Plan of Treatment Health Maintenance Due Date Last Done Comments Colorectal Cancer Screening Colonoscopy (10 Years) 1958 Hepatitis C 02/21/1976 DTaP, Tdap and Td Vaccines ( 1 - Tdap) 1977 Pneumococcal Vaccine: 50+ Ye ars (1 of 1 - PCV) 02/21/2008 Zoster Vaccines (1 of 2) 02/21/2008 Annual Medicare Wellness Visit 2023 PHQ-2 (Physician [place]) 10/13/2024 06/03/2024 COVID-19 Vaccine (1 - 2023-2 5 season) 2025 Influenza Adult (#1) 2025 RSV Immunization or 60+ Years (1 - 1-dose 75+ series) 2033 Hepatitis A Vaccines Aged Out No long er eligible based on patient's age to complete this topic Meningococcal B Vaccine Aged Out No l onger eligible based on patient's age to complete this topic Meningococcal Vaccine Aged Out No carla madisyn eligible based on patient's age to complete this topic RSV Immunizations Under 20 Months Aged Out No longer eligible based on patient's age to complete this topic Insurance [facility] MEDICARE Care Teams Film Composer Relationship Specialty Start Date End Date Александр Saunders MD [address] [place] [address] PCP - General INTERNAL MEDICINE 06/03/24
--- OUTSIDE RECORDS SUMMARY | 2025-08-01 17:25 | XMS_ITS | Clinical Summary ---
Author Organization [facility] Address [address] [place] [address] Care Team Providers Care Healthcare Administrator Name Role Phone Александр Saunders MD Primary Care Provider [phone] Source Comments [facility],non-owned Affiliates and Associated Physician Practices is amultiple site organization consisting of ambulatory clinics and hospital sitesin [place], [place], [place] and [place]. This disclosure is being madepursuant to the Care Everywhere program and may not contain all information available regarding this patient. Last updated 18.[employer] Allergies No known active allergies Medications * Be aware that medications may not be up to date on this document. Alwaysverify current medications with the patient. amphetamine-dex troamphetamine (Adderall) 20 MG tablet Take 1 (one) tablet by mouth every morning Active omeprazole (PriLOSEC) 40 MG capsule Take 1 (one) capsule by mouth daily before breakfast Active multivitamin daily tablet Take 1 (one) tablet by mouth daily with food Active Active Problems Problem Noted Date Diagnosed Date ST elevation myocardial infa rction (STEMI), unspecified artery 01/29/2023 Idiopathic pericarditis, unspecified chronicity 01/29/2023 Social History Tobacco Use Types Packs/Day Years Used Date Smoking Tobacco: Never Passive Smoke Exposure: Never Smokeless Tobacco: Never AUDIT-C Answer Date Recorded Q1: How often do you have a drink containing alc ohol? 2-3 times a week 01/29/2023 Q2: How many drinks containi ng alcohol do you have on a typical day when you are drinking? 3 or 4 01/29/2023 Q3: How often do you have si x or more drinks on one occasion? Never 01/29/2023 Overall Financial Resource Strain (CARDIA) Answe r Date Recorded How hard is it for you to pa y for the very basics like food, housing, medical care, and heating? Not very hard 01/29/2023 [facility] [place] [facility] Occupat ional Health - Occupational Stress Questionnaire Answer Date Recorded Do you feel stress - tense, restless, nervous, or anxious, or unable to sleep at night because your mind is troubled all the time - these days? Only a little 01/29/2023 Hunger Vital Sign Answer Date Recorded Within the past 12 months, y ou worried that your food would run out before you got the money to buy more. Never true 01/30/20 23 Within the past 12 months, t he food you bought just didn't last and you didn't have money to get more. Never true 01/29/2023 PRAPARE - Transportation Answer Date Re corded In the past 12 months, has l ack of transportation kept you from medical appointments or from getting medications? No 01/11 In the past 12 months, has l ack of transportation kept you from meetings, work, or from getting things needed for daily living? No 01/29/2023 Housing Stability Vital Sign Answer Yakov e Recorded In the last 12 months, was t here a time when you were not able to pay the mortgage or rent on time? No 01/29/2023 In the last 12 months, how many places have you lived? 1 01/29/2023 In the last 12 months, was t here a time when you did not have a steady place to sleep or slept in a nursing home (including now)? No 01/29/2023 Sex and Gender Information Value Date Recorded Sex Assigned at Not on file Legal Sex Male 9:26 AM CDT Gender Identity Not on file Sexual Orientation Not on file Last Filed Vital Signs Vital Sign Reading Time Taken Comments Blood Pressure 107/73 01/29/2023 4:25 PM CDT Pulse 76 01/29/2023 4:25 PM CDT Temperature 36.4 C (97.5 F) 01/29/2023 4:25 PM CDT Respiratory Rate 20 01/29/2023 4:25 PM CDT Oxygen Saturation 98% 01/29/2023 4:25 PM CDT Inhaled Oxygen Concentration - - Weight - - Height 182.9 cm (6') 01/29/2023 1:42 PM CDT Body Mass Index - - Plan of Treatment Health Maintenance Due Date Last Done Comments COLON MONITORING 1958 COLONOSCOPY - COLON CA SCREENING 1958 CT COLONOGRAPHY - COLON CA SCREENING 1958 FIT - COLON CA SCREENING 1958 FLEX SIG - COLON CA SCREENING 1958 HEPATITIS C SCREENING 02/16/1976 DTAP/TDAP/TD VACCINES (1 - Tdap) 1977 PNEUMOCOCCAL VACCINE 50+ (1 of 1 - PCV) 02/21/2008 ZOSTER VACCINE (1 of 2) 02/21/2008 DEPRESSION SCREENING 10/13/2024 COLOGUARD (AGES 45-75) - COL ON CA SCREENING 02/05/2025 02/05/2022 Colorectal Cancer Screening 02/05/2025 COVID-19 VACCINE (1 - 2023-2 5 season) 2025 INFLUENZA VACCINE (#1) 2025 LIPID TESTING 01/30/2028 01/29/2023 Respiratory Syncytial Virus (RSV) Vaccine Pt: or over 60 yrs (1 - 1-dose 75+ series) 2033 HEPATITIS B VACCINE Aged Out No longe r eligible based on patient's age to complete this topic HIB VACCINE Aged Out No longer eligi ble based on patient's age to complete this topic HPV VACCINE Aged Out No longer eligi ble based on patient's age to complete this topic MENINGOCOCCAL (Group B) VACC INE SHARED DECISION-MAKING Aged Out No longer eligibl e based on patient's age to complete this topic MENINGOCOCCAL GROUPS A/C/Y/W VACCINE Aged Out No longer eligible b ased on patient's age to complete this topic Procedures Procedure Name Priority Date/Time Associated Diagnosis Comments LIPID PROFILE STAT 01/29/2023 12:56 PM CDT from Last 3 Months or Most Recently Relevant to Health Maintenance Results * (ABNORMAL) LIPID PROFILE (01/29/2023 12:56 PM CDT) Cholesterol Total 156 <200 mg/dL 01/29/2023 1:32 PM CDT [facility] HDL 38(L) >40 mg/dL 01/29/2023 1:32 PM T [facility] Comment: ATP III Classification of HDL Cholesterol: <40 mg/dL: Considered a major risk factor. >60 mg/dL: Considered a negative risk factor. LDL Calculated 104(H) <100 mg/dL 01/29/2023 1:32 PM CDT [facility] Comment: ATP III Classification of LDL Cholesterol: <100 mg/dL: Optimal 100 - 129 mg/dL: Near Optimal/Above Optimal 130 - 159 mg/dL: Borderline High 160 - 189 mg/dL: High >190 mg/dL: Very High Triglycerides 68 <150 mg/dL 01/29/2023 1:32 PM T [facility] Comment: ATP III Classification of Triglycerides: <150 mg/dL: Normal 150 - 199 mg/dL: Borderline High 200 - 400 mg/dL: High >500 mg/dL: Very High Blood BLOOD SPECIMEN / Unknown Venipuncture / Unknown 01/29/2023 12:56 PM CDT 01/29/2023 1:03 PM CDT us Windy Grey MD LAB - CHEMISTRY ORDERABLES Final Result Performing Organization Address City/State/[facility] Co de Phone Number [facility] [address] [place] [address], [facility] [phone] from Last 3 Months or Most Recently Relevant to Health Maintenance Insurance [facility] MANAGED MEDICARE ADV SELF PAY NO INSURANCE Member Subscriber Plan / Payer (Ef fective for All Dates) Name:Tho Cannon Member ID:Not on file Relation to Subscriber:Not on file Name:THO CANNON Subscriber ID:Not on file (Home) Address: [address] [place] [address] [address] Payer ID:Not on file Group ID:Not on file Type:Self Pay Address: [place], [place] Advance Directives * Full Code (Latest Code Status on File) Date Activated Date Inactivated Comments 01/29/2023 7:58 AM 01/29/2023 7:37 PM Care Teams Healthcare Administrator Relationship Specialty Start Date End Date Александр Saunders MD [address] [place] [id number] PCP - General 02/28/22
--- OUTSIDE RECORDS SUMMARY | 2025-08-01 17:25 | XMS_ITS | Clinical Summary ---
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
--- OUTSIDE RECORDS SUMMARY | 2025-08-01 17:25 | XMS_ITS | Clinical Summary ---
Author Organization [facility] Address [address] [place] [address] Phone Care Team Providers Care Numerical Analysis Group Manager Name Role Phone Edd Martinez MD Primary Care Provider [phone] Allergies Active Allergy Reactions Criticality Noted Date Comments Codeine 11/02/2019 Medications omeprazole (PriLOSEC) [address] capsule Take 20 mg by mouth if needed Active Cholecalciferol (Vitamin D) 50 MCG (2000 UT) capsule Take by mouth 1 (one) time each day Active coenzyme Q-10 200 MG capsule Take 200 mg by mouth 1 (one) time each day Active Biotin 10 MG tablet Take 100 mg by mouth 1 (one) time each day Active Cyanocobalamin (B-12) 1000 MCG tablet Take 1,000 mcg by mouth 1 (one) time each day Active Ascorbic Acid (vitamin C) 1000 MG tablet Take 1,000 mg by mouth 1 (one) time each day Active Active Problems Problem Noted Date Diagnosed Date Vitamin D deficiency 08/01/2020 Chronic kidney disease stage 2 11/04/2019 Family History Medical History Relation Comments Myocardial infarction Father Malignant tumor of stomach Mother Relation Status Comments Father Mother Social History Tobacco Use Types Packs/Day Years Used Date Smoking Tobacco: Never Smokeless Tobacco: Never Alcohol Use Standard Drinks/Week Comments Never 0 (1 standard drink = 0.6 oz pur e alcohol) AUDIT-C Answer Date Recorded Frequency of Alcohol Consumption Never 11/02/2019 Average Number of Drinks Not on file 020 Frequency of Binge Drinking Not on file 10/14 Sex and Gender Information Value Date Recorded Sex Assigned at Not on file Legal Sex Male 9:59 AM MST Gender Identity Not on file Sexual Orientation Not on file Last Filed Vital Signs Vital Sign Reading Time Taken Comments Blood Pressure 144/78 11/27/2023 12:59 PM WORK OVER RIG OPERATOR Pulse 76 11/27/2023 12:59 PM WORK OVER RIG OPERATOR Temperature 36.6 C (97.8 F) 12/04/2021 1:34 PM WORK OVER RIG OPERATOR Respiratory Rate - - Oxygen Saturation - - Inhaled Oxygen Concentration - - Weight 81.6 kg (180 lb) 11/27/2023 12:59 PM WORK OVER RIG OPERATOR Height 182.9 cm (6') 11/27/2023 12:59 PM WORK OVER RIG OPERATOR Body Mass Index 24.41 11/27/2023 12:59 PM WORK OVER RIG OPERATOR Plan of Treatment Upcoming Encounters Date Type Department Care Team ([facility] st Contact Info) Description 09/27/2025 2:40 PM WORK OVER RIG OPERATOR Office Visit [facility] [address] [address] [place], [place] [id number] Rick Fitzgerald MD [address] [facility] [address] [place], [place] [id number] Health Maintenance Due Date Last Done Comments Pneumococcal PPSV23/PCV13 65 + Years / High and Highest Risk (1 of 5 - PCV) 1977 Influenza Vaccine (#1) 2025 Insurance MEDICARE PM INTERFACED INSURANCE [employer] Member Subscriber Plan / Payer (Ef fective 2023-Present) Name:Tho Ervin Member ID:[id number] Relation to Subscriber:Self Name:Tho Ervin Subscriber ID:Not on file Payer ID:[id number] (NAIC) Group ID:Not on file Type:Not on file Address: [address] Care Teams Numerical Analysis Group Manager Relationship Specialty [place] [address] [place] [address] PCP - General 11/27/23
--- OUTSIDE RECORDS SUMMARY | 2025-08-01 17:25 | XMS_ITS | Clinical Summary ---
Author Organization [facility] Address [address] [place] [address] Care Team Providers Care Engineering Technician Name Role Phone Александр Saunders MD Unavailable [phone] Александр Saunders MD Primary Care Provider [phone] Allergies Active Allergy Reactions Criticality Noted Date Comments Codeine Unknown 11/02/2019 Medications coenzyme Q10 200 mg capsule Take 200 mg by mouth daily Active traZODone (DESYREL) 50 mg tablet trazodone 50 mg tablet Active prednisoLONE acetate (PRED FORTE) 1 % ophthalmic suspension prednisolone acetate 1 % eye drops,suspension Active podofilox (Condylox) 0.5 % gel Condylox 0.5 % topical gel Active omeprazole (PriLOSEC) 20 mg capsule omeprazole 20 mg capsule,delayed release Active ofloxacin (OCUFLOX) 0.3 % ophthalmic solution ofloxacin 0.3 % eye drops Active LORazepam (ATIVAN) 1 mg tablet lorazepam 1 mg tablet TK 1 T PO TID PRN FOR ANXIETY Active ketorolac (ACULAR) 0.5 % ophthalmic solution ketorolac 0.5 % eye drops Active doxycycline (doxycycline hyclate) 100 mg capsule doxycycline hyclate 100 mg capsule TAKE 1 CAPSULE BY MOUTH DAILY Active dextroamphetami ne-amphetamine (ADDERALL) 10 mg tablet dextroamphetamin e-amphetamine 10 mg tablet Active cyanocobalamin (Vitamin B-12) 1,000 mcg tablet Take 1,000 mcg by mouth daily Active cholecalciferol (VITAMIN D-3) 2000 unit capsule Take by mouth daily Active biotin 10 mg tablet Take 100 mg by mouth daily Active amoxicillin 500 mg tablet/capsule amoxicillin 500 mg tablet TK 1 T PO BID Active triamterene-hyd roCHLOROthiazid e (Dyazide) 37.5-25 mg per tablet/capsule Take 1 tablet/capsule by mouth daily 30 tablet/capsu le 5 2 Active meclizine (ANTIVERT) 25 mg tablet Take 1 tablet (25 mg total) by mouth every 6 (six) hours as needed for dizziness 45 tablet 2 Active Active Problems Problem Noted Date Diagnosed Date Pain in eye 09/11/2017 Combined forms of age-related cataract 7 Secondary cataract 09/11/2017 History of surgical procedure on eye proper usin g laser 06/02/2015 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 Social History Tobacco Use Types Packs/Day Years Used Date Smoking Tobacco: Never Personal Safety Answer Date Recorded Getting School Help Needed Not on file 10/14 Sex and Gender Information Value Date Recorded Sex Assigned at Not on file 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 Male 5:52 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 Gender Identity Not on file Sexual Orientation Not on file Obstetrics History Last Filed Vital Signs Vital Sign Reading Time Taken Comments Blood Pressure 130/91 08/01/2019 6:10 AM CDT Pulse 86 08/01/2019 6:10 AM CDT Temperature 36.4 C (97.5 F) 08/01/2019 6:13 AM CDT Respiratory Rate 20 08/01/2019 6:10 AM CDT Oxygen Saturation 95% 08/01/2019 6:10 AM CDT Inhaled Oxygen Concentration - - Weight 81.6 kg (180 lb) 08/01/2019 6:13 AM CDT Height 185.4 cm (6' 1) 08/01/2019 6:13 AM CDT Body Mass Index 23.75 08/01/2019 6:13 AM CDT Plan of Treatment Health Maintenance Due Date Last Done Comments Colon Cancer Screening-Colonoscopy 1958 Depression Screening 1958 Fall Risk Assessment 1958 Hepatitis C Screening 1958 Prostate Cancer Screening-PSA 1958 DTaP/Tdap/Td Vaccine (1 - Tdap) 1969 Hepatitis B Screening 02/21/1976 Pneumococcal vaccine 65+ (1 of 1 - PCV) 02/21/2008 Zoster Vaccine (1 of 2) 02/21/2008 Abdominal Aortic Aneurysm (AAA) Screen 2023 Well Visit 65+ 2023 Influenza Vaccine (#1) 2025 Insurance [facility] MEDICARE ADVANTAGE [facility] Care Teams Engineering Technician Relationship Specialty Start Date End Date Александр Saunders MD PCP - General Internal Medicine 08/27/22 Александр Saunders MD Referring Physician Internal Medicine 06/20/22
--- OUTSIDE RECORDS SUMMARY | 2025-08-01 17:25 | XMS_ITS | Encounter Summary ---
Author Organization [facility] Address [address] [place] [address] Care Team Providers Care Logging Rafter Laborer Name Role Phone Unavailable Primary Care Provider Unavailabl e Encounter Details Date Type Department Care Team (Late st Contact Info) Description 03/17/2003 Outpatient Historical [facility] Support Serv. ([facility]) [address] 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
== END 2025-08-01 14:49 | disposition home or self-care (01) ==
PROVIDERS: PCP Internal Medicine; Visit Provider Internal Medicine
DX: R22.2 Localized swelling, mass and lump, trunk (principal)
CPT/HCPCS: 76705